=== PATIENT | female | born 1990 | race Caucasian/White ===

== ENCOUNTER 2016-12-03 09:20 | Inpatient (IN) | payer OTHER ==
--- NOTE | 2016-12-03 10:25 | PDOC ---
Attending Attestation - Resident Resident Name: Sotero Chaidez - ED Attending Attestation I have performed the following: I have examined & evaluated the patient, The case was reviewed & discussed with the resident, I agree w/resident's findings & plan, Exceptions are as noted - HPI HPI: 12/03/16 10:59 The patient is a 26-year-old, immunocompetent female, with a significant past medical history of previous MRSA colonization, who presents to the emergency department with several days of right sided facial swelling. She denies eye pain , pain with extraocular movement. She reports subjective fever and chills as well as paralyzed weakness and fatigue. - Physicial Exam PE: 12/03/16 10:59 She is well-appearing and in no acute distress She has 1 SIRS criteria, heart rate greater than 90 Will obtain labs Will administer IV clindamycin to cover community-acquired sandy including community acquired MRSA Will obtain CT of the facial bones with IV contrast to rule out abscess - Medical Decision Making 12/03/16 12:[address] pending
--- NOTE | 2016-12-03 10:26 | PDOC ---
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 No insect bites/ abrasions. Patient states that for the last 2 days, she has notes increased swelling over her right cheek with associated right nasal epistaxis and pus drainage. She also reports associated symptoms of subjective fevers and chills. She states that her right cheek is painful, for which she describes it as a pressure sensation with a rated 8-9/10 in severity. Her pain is exacerbated when chewing and opening her mouth. She took Ibuprofen this morning for her pain and fevers, for which she reports some relief. She denies associated symptoms of facial droop, slurred speech, difficulty swallowing, throat pain, neck pain, weakness and paresthesias sensations to the affected region and to her extremities. She reports that initially she believes she had a canker sore, but now states that her symptoms are similar to when she gets MRSA (Last MRSA was 2016; wound and blood; lives at [facility]; believes she gets her MRSA from there). She also reports noting a pruritic rash over her left foot. She also reports feeling short of breath but attributes her shortness of breath to her history of asthma and due to the hot weather. No chest pain, dizziness, palpitations, cough, nausea, vomiting, diarrhea. She does note that it is difficult for her to urinate, despite fluid intake and also reports a loss of appetite and generalized weakness and lightheadedness. She expresses concern for possible anemia, as she is craving ice chips and states that her menses are typically regular (lasting 5 days; but last month she states that her menses lasted approximately 12 days). No other complaints. Allergies: Lamictal. Topomax. Benadryl. Past Surgical History: See HPI. Social History: Current everyday cigarette smoker (approximately 1-2/day). No EtOH use. History of Opiod dependence, Primary Care Physician: N/A as of now, just switch her insurance. <Amanda Keen - Last Filed: 12/03/16 15:54> - General Chief Complaint: Edema Stated Complaint: SWOLLEN FACE Time Seen by Provider: 12/03/16 10:25 Past History - Past Medical History Anemia: No Asthma: Yes (Pt is on MDI) Cancer: No Cardiac Disorders: No CVA: No COPD: No CHF: No Dementia: No Diabetes: No GI Disorders: No Disorders: No HTN: No Hypercholesterolemia: No Kidney Stones: No Liver Disease: No Psychiatric Problems: Yes (anxiety) Suicide Attempt (Hx): No (denies) Seizures: No Thyroid Disease: No - Reproductive History PID: No - Immunization History Td Vaccination: Yes Immunization Up to Date: Yes - Psycho/Social/Smoking Cessation Hx Anxiety: Yes Suicidal Ideation: No Smoking Status: No Smoking History: Current every day smoker Have you smoked in the past 12 months: Yes Number of Cigarettes Smoked Daily: 1 Information on smoking cessation initiated: No 'Breaking Loose' booklet given: 11/13/15 Hx Alcohol Use: No Drug/Substance Use Hx: No Substance Use Type: Opiates, Prescribed Hx Substance Use Treatment: No <Sotero Chaidez - Last Filed: 12/03/16 12:09> <Arian Ricardo - Last Filed: 12/03/16 15:22> <Amanda Keen - Last Filed: 12/03/16 15:54> - Past Medical History Allergies/Adverse Reactions: Allergies Allergy/AdvReac Type Severity Reaction Status Date / Time buprenorphine HCl Allergy Verified 12/03/16 09:39 [From Suboxone] Fish Containing Products Allergy Verified 12/03/16 09:39 lamotrigine [From Lamictal] Allergy Verified 12/03/16 09:39 levonorgestrel-eth estra Allergy Verified 12/03/16 09:39 [From Seasonale] naloxone HCl [From Suboxone] Allergy Verified 12/03/16 09:39 topiramate [From Topamax] Allergy Verified 12/03/16 09:39 diphenhydramine HCl AdvReac Verified 12/03/16 09:39 [From Benadryl] liquid soap with perfume Allergy Uncoded 12/03/16 09:39 Home Medications: Ambulatory Orders Albuterol [Ventolin] 17 gm IH PRN PRN #1 aerosol 11/04/11 Amphet Asp/Amphet/D-Amphet [Adderall 30 mg Tablet] 90 mg PO DAILY 01/23/14 Alprazolam [Xanax -] 2 mg PO TID PRN 07/04/15 Cyclobenzaprine HCl [Flexeril -] 10 mg PO TID 11/13/15 Fluticasone Prop 0.05% Nasal [Flonase -] 2 spray NS DAILY 11/13/15 Zolpidem Tartrate [Ambien Cr] 10 mg PO HS 03/10/16 Quetiapine Fumarate [Seroquel] 100 mg PO HS 12/03/16 Venlafaxine HCl ER [Effexor Xr -] 150 mg PO DAILY 12/03/16 Review of Systems - Review of Systems Able to Perform ROS?: Yes Comments:: 12/03/16 10:47 CONSTITUTIONAL: Present: Fever. Chills. Loss of Appetite. Absent: diaphoresis, generalized weakness, malaise HEENT: Present: Epistaxis. Right nasal drainage/Pus. Throat Discomfort. Right cheek swelling. Absent: rhinorrhea, nasal congestion, throat swelling, difficulty swallowing, ear pain, eye pain, visual Changes CARDIOVASCULAR: Absent: chest pain, syncope, palpitations, irregular heart rate , lightheadedness, peripheral edema RESPIRATORY: Absent: cough, shortness of breath, dyspnea with exertion, orthopnea, wheezing, stridor, hemoptysis GASTROINTESTINAL:Absent: abdominal pain, abdominal distension, nausea, vomiting , diarrhea, constipation, melena, hematochezia GENITOURINARY: Absent: dysuria, frequency, urgency, hesitancy, hematuria, flank pain, genital pain MUSCULOSKELETAL: Absent: myalgia, arthralgia, joint swelling SKIN: Present: Left foot rash. Absent: itching, pallor HEMATOLOGIC/IMMUNOLOGIC: Absent: easy bleeding, easy bruising, lymphadenopathy, frequent infections ENDOCRINE:Absent: unexplained weight gain, unexplained weight loss, heat intolerance, cold intolerance NEUROLOGIC: Present: Lightheadedness. Absent: headache, focal weakness or paresthesias, unsteady gait, seizure, mental status changes, bladder or bowel incontinence PSYCHIATRIC: Present: history of anxiety/depression. Absent: suicidal or homicidal ideation, hallucinations <Amanda Keen - Last Filed: 12/03/16 15:54> *Physical Exam - Vital Signs Last Vital Signs Temp Pulse Resp BP Pulse Ox 98.4 F 95 H 18 152/91 100 12/03/16 09:39 12/03/16 09:39 12/03/16 09:39 12/03/16 09:39 12/03/16 09:39 <Sotero Chaidez - Last Filed: 12/03/16 12:09> - Vital Signs Last Vital Signs Temp Pulse Resp BP Pulse Ox 98.4 F 95 H 18 152/91 100 12/03/16 09:39 12/03/16 09:39 12/03/16 09:39 12/03/16 09:39 12/03/16 09:39 <Arian Ricardo - Last Filed: 12/03/16 15:22> - Vital Signs Last Vital Signs Temp Pulse Resp BP Pulse Ox 98.4 F 95 H 18 152/91 100 12/03/16 09:39 12/03/16 09:39 12/03/16 09:39 12/03/16 09:39 12/03/16 09:39 - Physical Exam Comments: 12/03/16 10:47 GENERAL: Awake. Alert and Oriented x3. No acute distress. Obese. HEENT: Normocephalic, atraumatic. PERRL, EOMI- no pain. No conjunctival pallor. Sclera are non-icteric. There is a noted pimple inside the opening of the right nare. No active bleeding. Right sided facial swelling with no induration, no open lesions, no abrasions with increased erythema when compared to the left nare. Right cheek is tender to palpation. No sinus pressure. Dry mucous membranes. Oropharynx is clear. NECK: Supple. Full ROM. No JVD. . No activ CARDIOVASCULAR: Regular rate and rhythm. No murmurs, rubs, or gallops. PULMONARY: No evidence of respiratory distress. Lungs clear to auscultation bilaterally. No wheezing, rales or rhonchi. ABDOMINAL: Soft. Non-tender. Non-distended. No rebound or guarding. No organomegaly. Normoactive bowel sounds. MUSCULOSKELETAL: Normal range of motion at all joints. No bony deformities or tenderness. No CVA tenderness. EXTREMITIES: No cyanosis. No clubbing. No edema. No calf tenderness. SKIN: Warm and dry. Normal capillary refill. No rashes. No jaundice. NEUROLOGICAL: Alert, awake, appropriate. Cranial nerves 2-12 intact. No deficits to light touch and temperature in face, upper extremities and lower extremities. No motor deficits in the in face, upper extremities and lower extremities. Normoreflexic in the upper and lower extremities. Normal speech. PSYCHIATRIC: Cooperative. Good eye contact. Appropriate mood and affect. <Amanda Keen - Last Filed: 12/03/16 15:54> ED Treatment Course - LABORATORY CBC & Chemistry Diagram: 12/03/16 10:53 12/03/16 10:53 <Sotero Chaidez - Last Filed: 12/03/16 12:09> - LABORATORY CBC & Chemistry Diagram: 12/03/16 10:53 12/03/16 10:53 - ADDITIONAL ORDERS Additional order review: Laboratory Results 12/03/16 12/03/16 12/03/16 10:53 10:53 10:53 Sodium 144 Potassium 4.2 Chloride 106 Carbon Dioxide 29 Anion Gap 9 BUN 14 D Creatinine 0.8 Creat Clearance w eGFR > 60 Random Glucose 92 Lactic Acid 0.733 Calcium 9.1 Total Bilirubin 0.4 AST 19 ALT 26 D Alkaline Phosphatase 83 Total Protein 6.7 Albumin 3.4 Urine Color Yellow Urine Appearance Clear Urine pH 6.0 Urine Protein Negative Urine Glucose (UA) Negative Urine Ketones Negative Urine Blood Negative Urine Nitrite Negative Urine Bilirubin Negative Urine Urobilinogen Negative Ur Leukocyte Esterase Negative Urine HCG, Qual Negative 12/03/16 10:53 RBC 4.39 MCV 78.4 L MCHC 31.7 L RDW 16.9 H D MPV 8.1 Neutrophils % 82.8 D Lymphocytes % 10.7 D Monocytes % 6.1 Eosinophils % 0.1 D Basophils % 0.3 - Medications Given in the ED: ED Medications Discontinued Medications Generic Name Dose Route Start Last Admin Trade Name Freq PRN Reason Stop Dose Admin Acetaminophen 1,000 mg 12/03/16 12:47 12/03/16 13:04 Ofirmev Injection - IVPB 12/03/16 12:48 1,000 mg ONCE ONE Administration Sodium Chloride 1,000 mls @ 1,000 mls/hr 12/03/16 10:52 12/03/16 11:28 Normal Saline - IV 12/03/16 11:51 1,000 mls/hr ASDIR STA Administration Clindamycin Phosphate 50 mls @ 100 mls/hr 12/03/16 10:59 12/03/16 11:28 Cleocin 900 Mg Premix Ivpb - IVPB 12/03/16 11:28 100 mls/hr ONCE ONE Administration <Arian Ricardo - Last Filed: 12/03/16 15:22> - LABORATORY CBC & Chemistry Diagram: 12/03/16 10:53 12/03/16 10:53 <Amanda Keen - Last Filed: 12/03/16 15:54> Medical Decision Making - Medical Decision Making 12/03/16 11:08 CBC, CMP, BCx, Lactic acid ordered UA, urine HCG ordered if urine hcg negative and creatinine wnl will also get facial bones CT w/ contrast 12/03/16 12:10 No elevated WBC, Cr 0.8, no electrolyte abnormalities Awaiting urine hcg before ct w/contrast <Sotero Chaidez - Last Filed: 12/03/16 12:09> - Medical Decision Making 12/03/16 15:22 Labs noted Case discussed with radiology She has facial cellulitis There is a small abscess at the base of the nose Clinical impression: Facial cellulitis Small facial abscess Will admit for IV antibiotics <Arian Ricardo - Last Filed: 12/03/16 15:22> - Medical Decision Making 12/03/16 15:[address] Rosibel Majano. 12/03/16 15:[address] Rosibel Majano. <Amanda Keen - Last Filed: 12/03/16 15:54> *DC/Admit/Observation/Transfer <Sotero Chaidez - Last Filed: 12/03/16 12:09> - Discharge Dispostion Admit: Yes <Arian Ricardo - Last Filed: 12/03/16 15:22> - Attestations Scribe Attestion: 12/03/16 10:47 Documentation prepared by Amanda Keen, acting as chief medical physicist for Arian Ricardo MD. <Amanda Keen - Last Filed: 12/03/16 15:54> Diagnosis at time of Disposition: Cellulitis, Abscess - Referrals Referrals: Justin Perez MD [Primary Care Provider] -
[2016-12-03] MEDS ORDERED: SODIUM CHLORIDE 1,000 ML IV STA (10:52)
[2016-12-03] MEDS ORDERED: CLINDAMYCIN 900 MG PREMIX IVPB 50 ML IVPB ONE ×2 (10:59→11:07)
[2016-12-03 11:18] LABS: BASOPHIL 0.3 % (0-2.0); EOSINOPHIL 0.1 % (0-4.5); MCH 24.9 pg (25.7-33.7); MCHC 31.7 g/dl (32.0-36.0); MEAN CELL VOLUME 78.4 fl (80-96); MEAN PLT VOLUME 8.1 fl (7.5-11.1); NEUTROPHILS 82.8 % (42.8-82.8); PLATELET COUNT 255 K/MM3 (134-434); RDW 16.9 % (11.6-15.6); WHITE BLOOD COUNT 8.5 K/mm3 (4.0-10.0)
[2016-12-03 11:45] LABS: ALBUMIN 3.4 g/dl (3.4-5.0); ANION GAP 9 (8-16); BILIRUBIN,TOTAL 0.4 mg/dL (0.2-1.0); CALCIUM 9.1 mg/dL (8.5-10.1); CO2 29 mmol/L (21-32); COCKROFT - GAULT 119.9435; CREATININE 0.8 mg/dL (0.55-1.02); GLUCOSE,RANDOM 92 mg/dL (74-106); SGOT/AST 19 U/L (15-37); SGPT/ALT 26 U/L (12-78); TOT PROT 6.7 g/dl (6.4-8.2)
[2016-12-03 11:46] LABS: ALK PHOS 83 U/L (45-117)
[2016-12-03 12:31] LABS: URINE APPEARANCE CLEAR; URINE BILIRUBIN NEGATIVE (NEGATIVE); URINE BLOOD NEGATIVE (NEGATIVE); URINE COLOR YELLOW; URINE GLUCOSE (UA) NEGATIVE (NEGATIVE); URINE KETONE NEGATIVE (NEGATIVE); URINE LEUK ESTERASE NEGATIVE (NEGATIVE); URINE NITRITE NEGATIVE (NEGATIVE); URINE PROTEIN NEGATIVE (NEGATIVE); URINE UROBILINOGEN NEGATIVE E.U./dl (0.2-1.0)
[2016-12-03] MEDS ORDERED: ACETAMINOPHEN 1000 MG/100 ML VIAL (NON FORMULARY) IVPB ONE (12:47)
[2016-12-03] MEDS ORDERED: ACETAMINOPHEN INJECTION 100 ML IVPB ONE (12:48)
[2016-12-03] MEDS ORDERED: morphine CARPU-JECT 4 MG/1 ML DISP.SYRIN IVPUSH ONE (16:01)
[2016-12-03] MEDS ORDERED: morphine CARPU-JECT 4 MG/1 ML DISP.SYRIN ONE (16:02)
[2016-12-03 19:29] VITALS: BMI 33.2
[2016-12-03] MEDS ORDERED: CLINDAMYCIN IVPB 300 MG in DEXTROSE 5%-WATER - 48 ML IVPB SCH (21:00)
[2016-12-03] MEDS ORDERED: VANCOMYCIN 1 GRAM (PRE-DOCKED) 1,000 MG/250 ML BAG IVPB SCH (21:00)
[2016-12-03] MEDS ORDERED: VANCOMYCIN 1 GRAM (PRE-DOCKED) 1,000 MG/250 ML BAG IVPB ONE (21:30)
[2016-12-03] MEDS ORDERED: ALBUTEROL SO4 6.7 GM HFA INHALER IH PRN (21:31)
[2016-12-03] MEDS ORDERED: PT OWN MED DRAWER 7, Y5N ONE (21:59)
[2016-12-03] MEDS: HEPARIN NA (PORCINE) 5,000 UNITS/ML 1ML VIAL SQ SCH (22:20)
[2016-12-03] MEDS: ALPRAZolam 2 MG TABLET PO PRN (22:23)
[2016-12-03] MEDS: QUEtiapine FUMARATE 100 MG TABLET (FP) PO SCH (22:23)
[2016-12-03] MEDS: CLINDAMYCIN 300 MG PREMIX IVPB 50 ML IVPB SCH (22:23)
--- NOTE | 2016-12-04 01:38 | HP ---
Admitting History and Physical - Past Medical History ...LMP: 11/13/16 ...: No - Smoking History Smoking history: Current every day smoker Have you smoked in the past 12 months: Yes Aproximately how many cigarettes per day: 10 - Alcohol/Substance Use Hx Alcohol Use: No Home Medications - Allergies Allergies/Adverse Reactions: Allergies Allergy/AdvReac Type Severity Reaction Status Date / Time buprenorphine HCl Allergy Verified 12/03/16 09:39 [From Suboxone] Fish Containing Products Allergy Verified 12/03/16 09:39 lamotrigine [From Lamictal] Allergy Verified 12/03/16 09:39 levonorgestrel-eth estra Allergy Verified 12/03/16 09:39 [From Seasonale] naloxone HCl [From Suboxone] Allergy Verified 12/03/16 09:39 topiramate [From Topamax] Allergy Verified 12/03/16 09:39 diphenhydramine HCl AdvReac Verified 12/03/16 09:39 [From Benadryl] liquid soap with perfume Allergy Uncoded 12/03/16 09:39 - Home Medications Home Medications: Ambulatory Orders Albuterol [Ventolin] 17 gm IH PRN PRN #1 aerosol 11/04/11 Amphet Asp/Amphet/D-Amphet [Adderall 30 mg Tablet] 90 mg PO DAILY 01/23/14 Alprazolam [Xanax -] 2 mg PO TID PRN 07/04/15 Cyclobenzaprine HCl [Flexeril -] 10 mg PO TID 11/13/15 Fluticasone Prop 0.05% Nasal [Flonase -] 2 spray NS DAILY 11/13/15 Zolpidem Tartrate [Ambien Cr] 10 mg PO HS 03/10/16 Quetiapine Fumarate [Seroquel] 100 mg PO HS 12/03/16 Venlafaxine HCl ER [Effexor Xr -] 150 mg PO DAILY 12/03/16 Physical Examination Vital Signs: Vital Signs Temperature 97.8 F 12/03/16 19:18 Pulse Rate 73 12/03/16 19:18 Respiratory Rate 20 12/03/16 19:18 Blood Pressure 124/74 12/03/16 19:18 O2 Sat by Pulse Oximetry (%) 99 12/03/16 19:18
[2016-12-04] MEDS: CLINDAMYCIN 300 MG PREMIX IVPB 50 ML IVPB SCH (02:13)
[2016-12-04 08:25] LABS: BASOPHIL 0.3 % (0-2.0); EOSINOPHIL 1.4 % (0-4.5); MCH 24.9 pg (25.7-33.7); MCHC 31.7 g/dl (32.0-36.0); MEAN CELL VOLUME 78.4 fl (80-96); MEAN PLT VOLUME 7.9 fl (7.5-11.1); NEUTROPHILS 49.7 % (42.8-82.8); PLATELET COUNT 229 K/MM3 (134-434); RDW 16.8 % (11.6-15.6); WHITE BLOOD COUNT 7.1 K/mm3 (4.0-10.0)
[2016-12-04] MEDS: KETOROLAC TROMETHAMINE 30 MG/1 ML VIAL IVPB PRN ×3 (08:39→20:58)
[2016-12-04] MEDS: ALPRAZolam 2 MG TABLET PO PRN ×2 (08:41→16:41)
--- NOTE | 2016-12-04 08:56 | PN ---
Progress Note, Physician Chief Complaint: ID Full note dictated history of MRSA recurrent - Current Medication List Current Medications: Active Medications Albuterol Sulfate (Ventolin Hfa Inhaler -) 2 puff IH Q4H PRN PRN Reason: SHORT OF BREATH/WHEEZING Alprazolam (Xanax -) 1 mg PO TID PRN PRN Reason: ANXIETY Last Admin: 12/04/16 08:41 Dose: 1 mg Cyclobenzaprine HCl (Flexeril -) 10 mg PO TID PRN PRN Reason: spasm Heparin Sodium (Porcine) (Heparin -) 5,000 unit SQ BID [facility] Last Admin: 12/03/16 22:20 Dose: 5,000 unit Clindamycin Phosphate (Cleocin 300 Mg Premix Ivpb) 50 mls @ 100 mls/hr IVPB Q6H -IV [facility] Last Admin: 12/04/16 02:13 Dose: 100 mls/hr Ketorolac Tromethamine (Toradol Injection -) 30 mg IVPB Q6H PRN Stop: 12/08/16 22:04 Last Admin: 12/04/16 08:39 Dose: 30 mg Quetiapine Fumarate (Seroquel -) 100 mg PO HS [facility] Last Admin: 12/03/16 22:23 Dose: Not Given Vancomycin HCl (Vancomycin (Pre-Docked)) 1,000 mg IVPB DAILY [facility] PRN Reason: Protocol Venlafaxine HCl (Effexor Xr -) 150 mg PO DAILY [facility] - Objective Vital Signs: Vital Signs Temperature 98.1 F 12/04/16 08:35 Pulse Rate 82 12/04/16 08:35 Respiratory Rate 18 12/04/16 08:35 Blood Pressure 141/60 12/04/16 08:35 O2 Sat by Pulse Oximetry (%) 99 12/03/16 21:00 HENT: Yes: Other (Right facial cheek induration and tenderness extending to the right nare looks inflammed) Labs: CBC, BMP 12/04/16 07:40 Problem List - Problems (1) Facial abscess Code(s): L02.01 - CUTANEOUS ABSCESS OF FACE (2) Cellulitis Code(s): L03.90 - CELLULITIS, UNSPECIFIED Assessment/Plan Microbiology Laboratory Tests 12/04/16 07:40 WBC 7.1 Hgb 10.8 Plt Count 229 Assessment MRSA skin infection Plan Nares culture Vanco 1.25mg bid Private room isolate Warm compresses face Consider ENT evaluation Parth CARRIZALES
[2016-12-04 09:00] LABS: ALBUMIN 2.7 g/dl (3.4-5.0); ALK PHOS 68 U/L (45-117); ANION GAP 12 (8-16); BILIRUBIN,TOTAL 0.2 mg/dL (0.2-1.0); CALCIUM 8.2 mg/dL (8.5-10.1); CO2 29 mmol/L (21-32); COCKROFT - GAULT 145.6475; CREATININE 0.7 mg/dL (0.55-1.02); GLUCOSE,RANDOM 89 mg/dL (74-106); SGOT/AST 12 U/L (15-37); SGPT/ALT 19 U/L (12-78); TOT PROT 5.5 g/dl (6.4-8.2)
[2016-12-04] MEDS ORDERED: PT OWN MED DRAWER 7, Y5N ONE ×2 (09:40→21:41)
[2016-12-04] MEDS: VENLAFAXINE HCL 75 MG E.R. CAPSULES (FP) PO SCH (09:42)
[2016-12-04] MEDS: HEPARIN NA (PORCINE) 5,000 UNITS/ML 1ML VIAL SQ SCH ×2 (09:42→21:42)
[2016-12-04] MEDS: VANCOMYCIN 1,250 MG in DEXTROSE 5%-WATER - 250 ML IVPB SCH ×2 (10:49→21:42)
--- NOTE | 2016-12-04 13:39 | CONS ---
DATE OF CONSULTATION: DATE OF DICTATION: 12/04/2016 HISTORY OF PRESENT ILLNESS: This is a 26-year-old female who presents with 2-3 history of right facial pain and swelling involving the outer naris on the right side of her face. She notes a history of recurrent MRSA infections including at least one prolonged admission where she may have been bacteremic years ago at [facility], as she notes staying there for 30 days. More recently, she has had intermittent skin abscesses including recently. Several days ago, she noted an irritation in the right side of her nose and began to irritate it noting purulent discharge. Over the last 2 days, the right cheek and outer aspect of her right nose became increasingly painful and swollen. She subjectively reports fever and chills. She denies any headache, visual complaints, chest pain, abdominal pain, or urinary complaints. PAST MEDICAL HISTORY: Includes asthma, anxiety disorder, bipolar, and polysubstance abuse, noting that she has been on Suboxone for opioid dependency. She has not been using intravenous drugs. She denies any history of heart murmur. She lives in a intermediate at the . She was empirically given clindamycin and a dose of vancomycin. ALLERGIES: To TOPAMAX and BENADRYL. SOCIAL HISTORY: An every-day smoker, no alcohol use, lives at a intermediate, history of opioid dependence, HIV status negative several days ago. FAMILY HISTORY: Noncontributory. REVIEW OF SYSTEMS: All systems reviewed and noncontributory, negative. PHYSICAL EXAMINATION: General: Shows an alert female in no acute distress. Vital signs: Without fever, with a temperature of 98.1, pulse 82, blood pressure 140/60, respirations 18. HEENT: Revealed facial swelling involving the right cheek adjacent to and at her aspect of the right naris. All areas were tender to touch with some faint erythema noted. Some dry discharge in the right nostril was noted. No crepitus was appreciated. LABORATORY DATA: The white count was 7.1 with a hemoglobin 10.8 and platelets of 229. Glucose was 89, BUN 11, creatinine 0.7. Urinalysis and test negative. Two sets of blood cultures obtained on admission, thus far, no growth. Facial bone CT scan shows inflammation, soft tissue induration anterior to the medial aspect of the right maxilla and base of the right nostril with enhancing soft tissue 12-mm central lucency, possible early abscess. ASSESSMENT: This 26-year-old female presents with right facial pain and swelling with early abscess noted on CT imaging. She is not toxic appearing, nor febrile, and has a normal white count. .Almost certainly, we are dealing with a recurrent methicillin-resistant staphylococcus aureus facial cellulitis with early abscess. Will discontinue clindamycin, put her on vancomycin 1.25 g every 12 hours, obtain a CRP, isolate her, and do naris screening. Consideration of ENT consult to assess for possible need for drainage. SRINIVASAN PARR M.D. [id number]
--- NOTE | 2016-12-04 19:57 | PN ---
Progress Note (short form) - Note Progress Note: ENT asked to see pt re facial and nasal infection hx reviewed pt examined prior hx MRSA admitted yesterday,batres right facial pain and swelling, nasal discomfort some drainage noted from right nostril teeth were hurting, lips were more swollen yesterday improving with IV antibiotics and lo9cal heat. PE NAD eyes clear nose external sl swelling right ala, drainage right inferior vestibule remaining nasal passage WNL mouth, throat clear right face mild swelling and mild erythema neck no mass or nodes WBC elevated +MRSA Impression right nasal and facial cellulitis, some spontaneous right nasal drainage improving with IV antibiotics Recommend: continue present management as per ID elevate head of bed, local heat Thank you for consultation, Arian Crow MD FACS
[2016-12-04] MEDS: QUEtiapine FUMARATE 100 MG TABLET (FP) PO SCH (21:40)
[2016-12-05] MEDS: ALPRAZolam 2 MG TABLET PO PRN ×3 (00:39→17:56)
[2016-12-05] MEDS: KETOROLAC TROMETHAMINE 30 MG/1 ML VIAL IVPB PRN ×3 (04:33→17:53)
[2016-12-05] MEDS: HEPARIN NA (PORCINE) 5,000 UNITS/ML 1ML VIAL SQ SCH ×2 (10:31→21:43)
[2016-12-05] MEDS: VENLAFAXINE HCL 75 MG E.R. CAPSULES (FP) PO SCH (10:31)
[2016-12-05] MEDS: VANCOMYCIN 1,250 MG in DEXTROSE 5%-WATER - 250 ML IVPB SCH ×2 (10:32→21:39)
--- NOTE | 2016-12-05 12:22 | PN ---
Progress Note (short form) - Note Progress Note: reports some improvement but still with facial pain Vital Signs Period Temp Pulse Resp BP Sys/Brower Pulse Ox Last 24 Hr 98.1 F-98.8 F 79-86 18-18 124-149/76-98 97 cor-rrr lungs clear abd soft,nt ext no edema face - still some induration right cheek and right ala CBC, BMP 12/04/16 07:40 12/04/16 07:40 Microbiology 12/03/16 10:53 Blood - Peripheral Venous Blood Culture - Preliminary NO GROWTH OBTAINED AFTER 48 HOURS, INCUBATION TO CONTINUE FOR 3 DAYS. 12/03/16 10:53 Blood - Peripheral Venous Blood Culture - Preliminary NO GROWTH OBTAINED AFTER 48 HOURS, INCUBATION TO CONTINUE FOR 3 DAYS. a/p facial cellulitis/soft tissue infection continue vancomycin check trough in am
--- NOTE | 2016-12-05 18:33 | PN ---
Progress Note, Physician - Current Medication List Current Medications: Active Medications Albuterol Sulfate (Ventolin Hfa Inhaler -) 2 puff IH Q4H PRN PRN Reason: SHORT OF BREATH/WHEEZING Alprazolam (Xanax -) 2 mg PO TID PRN PRN Reason: ANXIETY Last Admin: 12/05/16 17:56 Dose: 2 mg Cyclobenzaprine HCl (Flexeril -) 10 mg PO TID PRN PRN Reason: spasm Heparin Sodium (Porcine) (Heparin -) 5,000 unit SQ BID [facility] Last Admin: 12/05/16 10:31 Dose: 5,000 unit Vancomycin HCl 1,250 mg/ (Dextrose) 250 mls @ 166.667 mls/hr IVPB BID [facility] PRN Reason: Protocol Last Admin: 12/05/16 10:32 Dose: 166.667 mls/hr Ketorolac Tromethamine (Toradol Injection -) 30 mg IVPB Q6H PRN Stop: 12/08/16 22:04 Last Admin: 12/05/16 17:53 Dose: 30 mg Quetiapine Fumarate (Seroquel -) 100 mg PO HS [facility] Last Admin: 12/04/16 21:40 Dose: Not Given Venlafaxine HCl (Effexor Xr -) 150 mg PO DAILY [facility] Last Admin: 12/05/16 10:31 Dose: 150 mg - Objective Vital Signs: Vital Signs Temperature 97.6 F 12/05/16 13:50 Pulse Rate 73 12/05/16 13:50 Respiratory Rate 20 12/05/16 13:50 Blood Pressure 142/84 12/05/16 13:50 O2 Sat by Pulse Oximetry (%) 97 12/05/16 09:00 Labs: CBC, BMP 12/04/16 07:40 12/04/16 07:40
[2016-12-05] MEDS: PANTOPRAZOLE 40 MG TABLET (FP) PO SCH (21:43)
[2016-12-05] MEDS: MONTELUKAST NA 10 MG TABLET PO SCH (21:43)
[2016-12-05] MEDS: QUEtiapine FUMARATE 100 MG TABLET (FP) PO SCH (21:43)
[2016-12-06] MEDS: KETOROLAC TROMETHAMINE 30 MG/1 ML VIAL IVPB PRN ×3 (00:24→17:52)
[2016-12-06] MEDS: ZOLPIDEM TARTRATE 5 MG TABLET PO PRN ×2 (00:25→22:01)
[2016-12-06] MEDS ORDERED: PT OWN MED DRAWER 7, Y5N ONE (09:34)
[2016-12-06] MEDS: PANTOPRAZOLE 40 MG TABLET (FP) PO SCH (09:44)
[2016-12-06] MEDS: VENLAFAXINE HCL 75 MG E.R. CAPSULES (FP) PO SCH (09:44)
[2016-12-06] MEDS: HEPARIN NA (PORCINE) 5,000 UNITS/ML 1ML VIAL SQ SCH ×2 (09:44→22:01)
[2016-12-06] MEDS: ALPRAZolam 2 MG TABLET PO PRN ×2 (09:46→17:54)
[2016-12-06] MEDS: VANCOMYCIN 1,250 MG in DEXTROSE 5%-WATER - 250 ML IVPB SCH ×2 (09:58→21:54)
--- NOTE | 2016-12-06 13:42 | PN ---
Progress Note (short form) - Note Progress Note: reports some improvement but still with facial pain no fevers Vital Signs Period Temp Pulse Resp BP Sys/Brower Pulse Ox Last 24 Hr 97.6 F-98.6 F 60-80 18-20 106-142/51-84 97-100 cor-rrr lungs clear abd soft,nt ext no edema face- less erythema/less induration CBC, BMP 12/04/16 07:40 12/04/16 07:40 Laboratory Tests 12/06/16 09:00 Vancomycin Trough 15.474 H* Microbiology 12/03/16 10:53 Blood - Peripheral Venous Blood Culture - Preliminary NO GROWTH OBTAINED AFTER 72 HOURS, INCUBATION TO CONTINUE FOR 2 DAYS. 12/03/16 10:53 Blood - Peripheral Venous Blood Culture - Preliminary NO GROWTH OBTAINED AFTER 72 HOURS, INCUBATION TO CONTINUE FOR 2 DAYS. 12/04/16 09:55 Nares - Mrsa Screen - Right MRSA Screen - Final S Aureus 12/04/16 09:55 Nares - Mrsa Screen - Left MRSA Screen - Final S Aureus a/p facial cellulitis/soft tissue infection continue vancomycin, trough acceptable at 15 check cbc, bmp today if labs are normal, consider switch to po bactrim-nares with MRSA resistant to clinda, sensitive to bactrim
[2016-12-06] MEDS: CYCLOBENZAPRINE HCL 10 MG TABLET (FP) PO PRN ×2 (14:23→22:01)
[2016-12-06 14:45] LABS: MCH 24.5 pg (25.7-33.7); MCHC 31.5 g/dl (32.0-36.0); MEAN CELL VOLUME 77.9 fl (80-96); MEAN PLT VOLUME 7.7 fl (7.5-11.1); PLATELET COUNT 308 K/MM3 (134-434); WHITE BLOOD COUNT 15.9 K/mm3 (4.0-10.0)
[2016-12-06 14:50] LABS: CALCIUM 8.6 mg/dL (8.5-10.1); COCKROFT - GAULT 101.9575
[2016-12-06] MEDS: MONTELUKAST NA 10 MG TABLET PO SCH (22:01)
[2016-12-06] MEDS: QUEtiapine FUMARATE 100 MG TABLET (FP) PO SCH (22:02)
--- NOTE | 2016-12-06 23:22 | PN ---
Progress Note, Physician - Current Medication List Current Medications: Active Medications Albuterol Sulfate (Ventolin Hfa Inhaler -) 2 puff IH Q4H PRN PRN Reason: SHORT OF BREATH/WHEEZING Alprazolam (Xanax -) 2 mg PO TID PRN PRN Reason: ANXIETY Last Admin: 12/06/16 17:54 Dose: 2 mg Cyclobenzaprine HCl (Flexeril -) 10 mg PO TID PRN PRN Reason: spasm Last Admin: 12/06/16 22:01 Dose: 10 mg Heparin Sodium (Porcine) (Heparin -) 5,000 unit SQ BID [facility] Last Admin: 12/06/16 22:01 Dose: 5,000 unit Vancomycin HCl 1,250 mg/ (Dextrose) 250 mls @ 166.667 mls/hr IVPB BID [facility] PRN Reason: Protocol Last Admin: 12/06/16 21:54 Dose: 166.667 mls/hr Ketorolac Tromethamine (Toradol Injection -) 30 mg IVPB Q6H PRN Stop: 12/08/16 22:04 Last Admin: 12/06/16 17:52 Dose: 30 mg Montelukast Sodium (Singulair -) 10 mg PO HS [facility] Last Admin: 12/06/16 22:01 Dose: 10 mg Pantoprazole Sodium (Protonix -) 40 mg PO DAILY [facility] Last Admin: 12/06/16 09:44 Dose: 40 mg Quetiapine Fumarate (Seroquel -) 100 mg PO HS [facility] Last Admin: 12/06/16 22:02 Dose: Not Given Venlafaxine HCl (Effexor Xr -) 150 mg PO DAILY [facility] Last Admin: 12/06/16 09:44 Dose: 150 mg Zolpidem Tartrate (Ambien -) 10 mg PO HS PRN PRN Reason: INSOMNIA Last Admin: 12/06/16 22:01 Dose: 10 mg - Objective Vital Signs: Vital Signs Temperature 97.3 F L 12/06/16 17:38 Pulse Rate 60 12/06/16 17:38 Respiratory Rate 20 12/06/16 17:38 Blood Pressure 90/56 12/06/16 17:38 O2 Sat by Pulse Oximetry (%) 100 12/06/16 09:00 Labs: CBC, BMP 12/06/16 14:15 12/06/16 14:15
[2016-12-07 07:30] LABS: BASOPHIL 0.4 % (0-2.0); EOSINOPHIL 1.4 % (0-4.5); MCH 25.1 pg (25.7-33.7); MCHC 31.7 g/dl (32.0-36.0); MEAN CELL VOLUME 79.1 fl (80-96); MEAN PLT VOLUME 7.6 fl (7.5-11.1); NEUTROPHILS 60.9 % (42.8-82.8); PLATELET COUNT 289 K/MM3 (134-434); RDW 16.8 % (11.6-15.6); WHITE BLOOD COUNT 10.9 K/mm3 (4.0-10.0)
[2016-12-07 08:29] LABS: ALBUMIN 3.1 g/dl (3.4-5.0); ALK PHOS 71 U/L (45-117); ANION GAP 7 (8-16); BILIRUBIN,TOTAL 0.3 mg/dL (0.2-1.0); CALCIUM 8.6 mg/dL (8.5-10.1); CO2 32 mmol/L (21-32); COCKROFT - GAULT 113.2795; CREATININE 0.9 mg/dL (0.55-1.02); GLUCOSE,RANDOM 67 mg/dL (74-106); SGOT/AST 25 U/L (15-37); SGPT/ALT 24 U/L (12-78); TOT PROT 6.3 g/dl (6.4-8.2)
[2016-12-07] MEDS ORDERED: PT OWN MED DRAWER 7, Y5N ONE (09:01)
[2016-12-07] MEDS: VENLAFAXINE HCL 75 MG E.R. CAPSULES (FP) PO SCH (09:14)
[2016-12-07] MEDS: KETOROLAC TROMETHAMINE 30 MG/1 ML VIAL IVPB PRN ×2 (09:14→21:23)
[2016-12-07] MEDS: PANTOPRAZOLE 40 MG TABLET (FP) PO SCH (09:14)
[2016-12-07] MEDS: ALPRAZolam 2 MG TABLET PO PRN ×2 (09:14→17:57)
[2016-12-07] MEDS: HEPARIN NA (PORCINE) 5,000 UNITS/ML 1ML VIAL SQ SCH ×2 (09:14→21:23)
[2016-12-07] MEDS: VANCOMYCIN 1 GRAM (PRE-DOCKED) 1,000 MG/250 ML BAG IVPB SCH ×2 (09:15→21:24)
[2016-12-07] MEDS: CYCLOBENZAPRINE HCL 10 MG TABLET (FP) PO PRN (17:57)
--- NOTE | 2016-12-07 18:19 | PN ---
Progress Note (short form) - Note Progress Note: ENT pt reports significant improvement in right nose and face "70% better" still some tightness and retroorbital pressure sense of smell improving Now complains of an abscess developing in left axilla PE NAD eyes EOMI, conjunctivae clear face no swelling nose no drainage, airway WNL Impression: right nasal and facial infection improved left axillary infection - new per pt pt has known hx of nasal allergy and sinus problems (outpt mgmt with Dr. Bolden) Recommend: continue antibiotics as per Infectious Diseases nasal saline spray Arian Crow MD
--- NOTE | 2016-12-07 20:33 | PN ---
Progress Note, Physician History of Present Illness: No new complaints - Current Medication List Current Medications: Active Medications Albuterol Sulfate (Ventolin Hfa Inhaler -) 2 puff IH Q4H PRN PRN Reason: SHORT OF BREATH/WHEEZING Alprazolam (Xanax -) 2 mg PO TID PRN PRN Reason: ANXIETY Last Admin: 12/07/16 17:57 Dose: 2 mg Cyclobenzaprine HCl (Flexeril -) 10 mg PO TID PRN PRN Reason: spasm Last Admin: 12/07/16 17:57 Dose: 10 mg Heparin Sodium (Porcine) (Heparin -) 5,000 unit SQ BID [facility] Last Admin: 12/07/16 09:14 Dose: 5,000 unit Ketorolac Tromethamine (Toradol Injection -) 30 mg IVPB Q6H PRN Stop: 12/08/16 22:04 Last Admin: 12/07/16 09:14 Dose: 30 mg Montelukast Sodium (Singulair -) 10 mg PO HS [facility] Last Admin: 12/06/16 22:01 Dose: 10 mg Pantoprazole Sodium (Protonix -) 40 mg PO DAILY [facility] Last Admin: 12/07/16 09:14 Dose: 40 mg Quetiapine Fumarate (Seroquel -) 100 mg PO HS [facility] Last Admin: 12/06/16 22:02 Dose: Not Given Sodium Chloride ([place] Nasal [place] -) 2 spray NS BID [facility] Vancomycin HCl (Vancomycin (Pre-Docked)) 1,000 mg IVPB BID [facility] PRN Reason: Protocol Last Admin: 12/07/16 09:15 Dose: 1,000 mg Venlafaxine HCl (Effexor Xr -) 150 mg PO DAILY [facility] Last Admin: 12/07/16 09:14 Dose: 150 mg Zolpidem Tartrate (Ambien -) 10 mg PO HS PRN PRN Reason: INSOMNIA Last Admin: 12/06/16 22:01 Dose: 10 mg - Objective Vital Signs: Vital Signs Temperature 98.0 F 12/07/16 14:12 Pulse Rate 74 12/07/16 14:12 Respiratory Rate 20 12/07/16 09:00 Blood Pressure 114/59 12/07/16 14:12 O2 Sat by Pulse Oximetry (%) 100 12/06/16 21:00 Constitutional: Yes: Well Nourished Eyes: Yes: WNL HENT: Yes: Other ((+) abrasion Rt nare) Neck: Yes: Supple Cardiovascular: Yes: WNL, Regular Rate and Rhythm Respiratory: Yes: WNL, Regular, CTA Bilaterally Gastrointestinal: Yes: WNL, Normal Bowel Sounds, Soft Labs: CBC, BMP 12/07/16 06:30 12/07/16 06:30 Problem List - Problems (1) Cellulitis Assessment/Plan: Cont IV antibxs Check wbc in am and if normal will change to po antibx and dc Code(s): L03.90 - CELLULITIS, UNSPECIFIED (2) Facial abscess Assessment/Plan: Cont IV antibx ENT consult noted Code(s): L02.01 - CUTANEOUS ABSCESS OF FACE (3) Acid reflux disease Code(s): K21.9 - GASTRO-ESOPHAGEAL REFLUX DISEASE WITHOUT ESOPHAGITIS Qualifiers: Esophagitis presence: without esophagitis Qualified Code(s): K21.9 - Gastro-esophageal reflux disease without esophagitis (4) Anemia Code(s): D64.9 - ANEMIA, UNSPECIFIED Qualifiers: Anemia type: unspecified type Qualified Code(s): D64.9 - Anemia, unspecified (5) Asthma Code(s): J45.909 - UNSPECIFIED ASTHMA, UNCOMPLICATED Qualifiers: Asthma severity: mild intermittent Asthma complication type: uncomplicated Qualified Code(s): J45.20 - Mild intermittent asthma, uncomplicated
[2016-12-07] MEDS: MONTELUKAST NA 10 MG TABLET PO SCH (21:22)
[2016-12-07] MEDS: QUEtiapine FUMARATE 100 MG TABLET (FP) PO SCH (21:24)
[2016-12-07] MEDS: SODIUM CHLORIDE NASAL SPRAY 44 ML BOTTLE NS SCH (21:24)
[2016-12-08] MEDS: ZOLPIDEM TARTRATE 5 MG TABLET PO PRN (00:09)
[2016-12-08 07:40] LABS: BASOPHIL 0.2 % (0-2.0); EOSINOPHIL 1.4 % (0-4.5); MCH 25.1 pg (25.7-33.7); MEAN CELL VOLUME 78.5 fl (80-96); MEAN PLT VOLUME 7.8 fl (7.5-11.1); NEUTROPHILS 60.5 % (42.8-82.8); PLATELET COUNT 282 K/MM3 (134-434); WHITE BLOOD COUNT 10.5 K/mm3 (4.0-10.0)
[2016-12-08 08:39] LABS: ALK PHOS 63 U/L (45-117); ANION GAP 8 (8-16); BILIRUBIN,TOTAL 0.4 mg/dL (0.2-1.0); CALCIUM 8.5 mg/dL (8.5-10.1); CO2 30 mmol/L (21-32); COCKROFT - GAULT 101.9575; GLUCOSE,RANDOM 60 mg/dL (74-106); SGOT/AST 26 U/L (15-37); SGPT/ALT 26 U/L (12-78); TOT PROT 5.9 g/dl (6.4-8.2)
[2016-12-08] MEDS: KETOROLAC TROMETHAMINE 30 MG/1 ML VIAL IVPB PRN (09:09)
[2016-12-08] MEDS: SODIUM CHLORIDE NASAL SPRAY 44 ML BOTTLE NS SCH (09:09)
[2016-12-08] MEDS: HEPARIN NA (PORCINE) 5,000 UNITS/ML 1ML VIAL SQ SCH (09:10)
[2016-12-08] MEDS: VANCOMYCIN 1 GRAM (PRE-DOCKED) 1,000 MG/250 ML BAG IVPB SCH (09:10)
[2016-12-08] MEDS: PANTOPRAZOLE 40 MG TABLET (FP) PO SCH (09:10)
[2016-12-08] MEDS: VENLAFAXINE HCL 75 MG E.R. CAPSULES (FP) PO SCH (09:26)
--- NOTE | 2016-12-08 12:22 | PN ---
Progress Note (short form) - Note Progress Note: doing well facial erythema resolved induration resolved Vital Signs Period Temp Pulse Resp BP Sys/Brower Pulse Ox Last 24 Hr 98.0 F-98.5 F 74-80 20-20 102-114/42-59 cor-rrr lungs clear abd soft,nt ext no edema no axillary abscess CBC, BMP 12/08/16 06:15 12/08/16 06:15 Microbiology 12/03/16 10:53 Blood - Peripheral Venous Blood Culture - Final NO GROWTH AFTER 5 DAYS INCUBATION 12/03/16 10:53 Blood - Peripheral Venous Blood Culture - Final NO GROWTH AFTER 5 DAYS INCUBATION 12/04/16 09:55 Nares - Mrsa Screen - Right MRSA Screen - Final Mr S Aureus 12/04/16 09:55 Nares - Mrsa Screen - Left MRSA Screen - Final Mr S Aureus a/p much improved MRSA cellulitis can switch to po bactrim 1 ds po bid for 7 days she gets frequent mrsa infections could try decolonization after she completes bactrim with 7 days of daily chlorhexidine washes and 7 days of mupirocin to nares bid please call back if needed
[2016-12-08 15:00] VITALS: BP 106/54; PULSE 98; TEMP 98.6
== END 2016-12-08 15:09 | disposition home or self-care (01) | DRG 383 ==
LOC: JER 09:20 → JERBED 15:24 → J6S 17:40
PROVIDERS: ADMIT Internal Medicine; ATTEND Internal Medicine
DX: L03.211 Cellulitis of face (principal); J45.909 Unspecified asthma, uncomplicated; F41.9 Anxiety disorder, unspecified; F90.1 Attention-deficit hyperactivity disorder, predominantly hyperactive type; F31.9 Bipolar disorder, unspecified; H40.9 Unspecified glaucoma; F11.10 Opioid abuse, uncomplicated; E66.9 Obesity, unspecified; F17.210 Nicotine dependence, cigarettes, uncomplicated; K21.9 Gastro-esophageal reflux disease without esophagitis; D64.9 Anemia, unspecified; B95.62 Methicillin resistant Staphylococcus aureus infection as the cause of diseases classified elsewhere; Z68.33 Body mass index [BMI] 33.0-33.9, adult
CPT/HCPCS: 36415; 70487-TC; 80048; 80053; 81003; 83605; 84703; 85025; 85027; 86141; 87040; 87081; 87186; 99284-25; G0480; J1644

== ENCOUNTER 2016-12-22 16:36 | Emergency (ER) | payer OTHER ==
[2016-12-22 17:03] VITALS: BP 141/78; PULSE 86; TEMP 98.3; BMI 35.2
--- NOTE | 2016-12-22 17:03 | PDOC ---
Rapid Medical Evaluation Time Seen by Provider: 12/22/16 16:59 Medical Evaluation: Allergies Allergy/AdvReac Type Severity Reaction Status Date / Time buprenorphine HCl Allergy Verified 12/03/16 09:39 [From Suboxone] Fish Containing Products Allergy Verified 12/03/16 09:39 lamotrigine [From Lamictal] Allergy Verified 12/03/16 09:39 levonorgestrel-eth estra Allergy Verified 12/03/16 09:39 [From Seasonale] naloxone HCl [From Suboxone] Allergy Verified 12/03/16 09:39 topiramate [From Topamax] Allergy Verified 12/03/16 09:39 diphenhydramine HCl AdvReac Verified 12/03/16 09:39 [From Benadryl] liquid soap with perfume Allergy Uncoded 12/03/16 09:39 I have performed a brief in-person evaluation of this patient. The patient presents with a chief complaint of: pain of maxillary sinuses, sinus headache, congestion and sore throat x 3 days. In the past the patient has needed IV abx for treatment of MRSA sinus infections. Prior infections have been treated with vancomycin. Fever this morning of 102.3 - took motrin. Pertinent physical exam findings: TTP of frontal and maxillary sinuses. I have ordered the following: UA/hcg The patient will proceed to the ED for further evaluation.
[2016-12-22 17:26] LABS: URINE APPEARANCE CLEAR; URINE BILIRUBIN NEGATIVE (NEGATIVE); URINE BLOOD NEGATIVE (NEGATIVE); URINE COLOR YELLOW; URINE GLUCOSE (UA) NEGATIVE (NEGATIVE); URINE KETONE TRACE (NEGATIVE); URINE NITRITE NEGATIVE (NEGATIVE); URINE PROTEIN NEGATIVE (NEGATIVE); URINE UROBILINOGEN NEGATIVE E.U./dl (0.2-1.0)
[2016-12-22 17:52] LABS: URINE LEUK ESTERASE TRACE (NEGATIVE)
--- NOTE | 2016-12-22 18:28 | PDOC ---
History of Present Illness - General Chief Complaint: Pain Stated Complaint: EVALUATION Time Seen by Provider: 12/22/16 16:59 History Source: Patient Exam Limitations: No Limitations - History of Present Illness Initial Comments: 12/22/16 18:31 Him a with history of recurrent sinus infections secondary to MRSA presents to the ED with complaints of right nasal pressure including congestion despite being on Augmentin day 5 of 7 and using Flonase. Patient denies fever, chills, dizziness, sore throat but does state frontal headache which she describes a pressure. Patient states was admitted here last month secondary to facial cellulitis where she was placed on IV vancomycin and discharged home with Bactrim after seeing infectious disease and ENT specialist. Timing/Duration: changing over time Severity: mild Associated Symptoms: reports: headaches (frontal). denies: fever/chills Past History - Travel Traveled outside of the country in the last 30 days: No Close contact w/someone who was outside of country & ill: No - Past Medical History Allergies/Adverse Reactions: Allergies Allergy/AdvReac Type Severity Reaction Status Date / Time buprenorphine HCl Allergy Verified 12/22/16 17:03 [From Suboxone] Fish Containing Products Allergy Verified 12/22/16 17:03 lamotrigine [From Lamictal] Allergy Verified 12/22/16 17:03 levonorgestrel-eth estra Allergy Verified 12/22/16 17:03 [From Seasonale] naloxone HCl [From Suboxone] Allergy Verified 12/22/16 17:03 topiramate [From Topamax] Allergy Verified 12/22/16 17:03 diphenhydramine HCl AdvReac Verified 12/22/16 17:03 [From Benadryl] liquid soap with perfume Allergy Uncoded 12/22/16 17:03 Home Medications: Ambulatory Orders Albuterol [Ventolin] 17 gm IH PRN PRN #1 aerosol 11/04/11 Amphet Asp/Amphet/D-Amphet [Adderall 30 mg Tablet] 90 mg PO DAILY 01/23/14 Alprazolam [Xanax] 2 mg PO TID PRN 07/04/15 Cyclobenzaprine HCl [Flexeril -] 10 mg PO TID 11/13/15 Fluticasone Prop 0.05% Nasal [Flonase -] 2 spray NS DAILY 11/13/15 Zolpidem Tartrate [Ambien Cr] 10 mg PO HS 03/10/16 Quetiapine Fumarate [Seroquel] 100 mg PO HS 12/03/16 Venlafaxine HCl ER [Effexor Xr -] 150 mg PO DAILY 12/03/16 Montelukast Na [Singulair -] 10 mg PO HS tablet 12/08/16 Mupirocin Nasal Ointment [Bactroban Nasal -] 1 applic NS BID #1 box 12/08/16 Sulfamethoxazole/Trimethoprim [Bactrim Ds -] 1 tab PO BID #14 tablet 12/08/16 Zolpidem Tartrate [Ambien] 10 mg PO HS PRN #30 tablet MDD 1 12/08/16 Anemia: No Asthma: Yes (Pt is on MDI) Cancer: No Cardiac Disorders: No CVA: No COPD: No CHF: No Dementia: No Diabetes: No GI Disorders: No Disorders: No HTN: No Hypercholesterolemia: No Kidney Stones: No Liver Disease: No Psychiatric Problems: Yes (anxiety) Suicide Attempt (Hx): No (denies) Seizures: No Thyroid Disease: No - Reproductive History LMP Normal: Yes Is Patient Now?: No PID: No - Immunization History Td Vaccination: Yes Immunization Up to Date: Yes - Psycho/Social/Smoking Cessation Hx Anxiety: Yes Suicidal Ideation: No Smoking Status: No Smoking History: Current every day smoker Have you smoked in the past 12 months: Yes Number of Cigarettes Smoked Daily: 10 Information on smoking cessation initiated: No 'Breaking Loose' booklet given: 11/13/15 Hx Alcohol Use: No Drug/Substance Use Hx: Yes Substance Use Type: Opiates, Prescribed Hx Substance Use Treatment: Yes (SUBOXONE) Patient Lives Alone: No Review of Systems - Review of Systems Able to Perform ROS?: Yes Constitutional: No: Symptoms Reported HEENTM: Yes: Nose Pain, Nose Congestion Respiratory: No: Symptoms reported Cardiac (ROS): No: Symptoms Reported ABD/GI: No: Symptoms Reported : No: Symptoms Reported Musculoskeletal: No: Symptoms Reported Integumentary: Yes: Lumps (rt nasal fold). No: Erythema Neurological: Yes: Headache (frontal) Endocrine: No: Symptoms Reported *Physical Exam - Vital Signs Last Vital Signs Temp Pulse Resp BP Pulse Ox 98.3 F 86 18 141/78 99 12/22/16 16:59 12/22/16 16:59 12/22/16 16:59 12/22/16 16:59 12/22/16 16:59 - Physical Exam General Appearance: Yes: Nourished, Appropriately Dressed. No: Apparent Distress HEENT: positive: EOMI, JESSICA, TMs Normal, Pharynx Normal, Sinus Tenderness ( fronatal and maxillary). negative: Pale Conjunctivae, Nasal Congestion, Rhinorrhea Neck: positive: Normal Thyroid, Supple. negative: Lymphadenopathy (R), Lymphadenopathy (L) Respiratory/Chest: positive: Lungs Clear, Normal Breath Sounds. negative: Respiratory Distress, Accessory Muscle Use Cardiovascular: positive: Regular Rhythm, Regular Rate. negative: Murmur Gastrointestinal/Abdominal: positive: Soft. negative: Tenderness Integumentary: positive: Normal Color, Warm, Moist, Swelling (mild to nasolabial fold and rt cheek . Approx 2 cm in diameter) Neurologic: positive: Normal Mood/Affect, Motor Strength 5/5 (ambulatory) ED Treatment Course - ADDITIONAL ORDERS Additional order review: Laboratory Results 12/22/16 17:15 Urine Color Yellow Urine Appearance Clear Urine pH 6.0 Urine Protein Negative Urine Glucose (UA) Negative Urine Ketones Trace H Urine Blood Negative Urine Nitrite Negative Urine Bilirubin Negative Urine Urobilinogen Negative Ur Leukocyte Esterase Trace H Urine HCG, Qual Negative - RADIOLOGY Radiology Studies Ordered: Category Date Time Status SINUS CT W/O CONTRAST [CT] Stat CT Scan 12/22/16 18:10 Ordered Medical Decision Making - Medical Decision Making 12/22/16 18:38 Patient with recurrent sinusitis and recently admitted for right facial cellulitis being treated with vancomycin. Patient as on exam had facial tenderness over the right maxillary sinus. Patient has normal vital signs and otherwise had no acute findings except for subjective information. patient was ordered for facial CT . Will decide disposition once results are reviewed.
--- NOTE | 2016-12-22 19:26 | PDOC ---
*Physical Exam - Vital Signs Last Vital Signs Temp Pulse Resp BP Pulse Ox 98.3 F 86 18 141/78 99 12/22/16 16:59 12/22/16 16:59 12/22/16 16:59 12/22/16 16:59 12/22/16 16:59 ED Treatment Course - ADDITIONAL ORDERS Additional order review: Laboratory Results 12/22/16 17:15 Urine Color Yellow Urine Appearance Clear Urine pH 6.0 Urine Protein Negative Urine Glucose (UA) Negative Urine Ketones Trace H Urine Blood Negative Urine Nitrite Negative Urine Bilirubin Negative Urine Urobilinogen Negative Ur Leukocyte Esterase Trace H Urine HCG, Qual Negative Progress Note - Progress Note Progress Note: Patient came to the emergency department for possible facial cellulitis. Facial CT was ordered without contrast. Preliminary report, impression: Chronic sinusitis mainly in the right maxillary antrum with questionable air-fluid level , cannot rule out superimposed acute sinusitis. Patient is currently on Augmentin. Patient's resting comfortably on the stretcher in the emergency department and wishes to be discharged. *DC/Admit/Observation/Transfer Diagnosis at time of Disposition: Chronic sinusitis Qualifiers: Sinusitis location: maxillary Qualified Code(s): J32.0 - Chronic maxillary sinusitis - Discharge Dispostion Disposition: HOME Condition at time of disposition: Stable Admit: No - Referrals Referrals: Justin Perez MD [Primary Care Provider] - Arian Crow MD [Staff Physician] - - Patient Instructions Printed Discharge Instructions: DI for Sinusitis Additional Instructions: You must follow with an ENT physician or the one listed on your discharge (Dr. Crow). Continue your Augmentin as prescribed Return back to the ER for severe/persistent or worsening symptoms
[2016-12-22] MEDS ORDERED: KETOROLAC TROMETHAMINE 60 MG/2 ML VIAL IM ONE (19:29)
[2016-12-22] MEDS ORDERED: KETOROLAC TROMETHAMINE 60 MG/2 ML VIAL ONE (19:31)
[2016-12-22 20:03] LABS: URINE BACTERIA RARE /hpf (NONE SEEN); URINE MUCUS RARE; URINE RBC 6 /hpf (0-3); URINE WBC 5 /hpf (3-5)
== END 2016-12-22 20:19 | disposition home or self-care (01) ==
LOC: JER 16:36
PROC: 3E0333Z Introduction of Anti-inflammatory into Peripheral Vein, Percutaneous Approach (ICD-10-PCS; principal; 2016-12-22)
DX: J32.0 Chronic maxillary sinusitis (principal); F41.9 Anxiety disorder, unspecified; F17.210 Nicotine dependence, cigarettes, uncomplicated
CPT/HCPCS: 70486-TC; 81003; 81015; 84703; 96372; 99282-25

== ENCOUNTER 2017-02-24 17:33 | Emergency (ER) | payer OTHER ==
[2017-02-24 18:25] VITALS: BP 133/88; PULSE 73; TEMP 98.6; BMI 38.0
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
--- NOTE | 2017-02-24 19:02 | PDOC ---
Attending Attestation - Resident Resident Name: Joey Marsh - ED Attending Attestation I have performed the following: I have examined & evaluated the patient, The case was reviewed & discussed with the resident, I agree w/resident's findings & plan, Exceptions are as noted - HPI HPI: 02/24/17 19:00 Syncope in her doctors office, one of several episodes since she has not had her suboxone. - Physicial Exam PE: 02/24/17 19:01 No focality/ Benign - Medical Decision Making 02/24/17 19:01 Small BROWN, she can take her own suboxone. Anticipate DC Home if BROWN Negative
[2017-02-24 19:25] LABS: URINE APPEARANCE CLEAR; URINE BILIRUBIN NEGATIVE (NEGATIVE); URINE BLOOD NEGATIVE (NEGATIVE); URINE COLOR STRAW; URINE GLUCOSE (UA) NEGATIVE (NEGATIVE); URINE KETONE NEGATIVE (NEGATIVE); URINE LEUK ESTERASE NEGATIVE (NEGATIVE); URINE NITRITE NEGATIVE (NEGATIVE); URINE PROTEIN NEGATIVE (NEGATIVE); URINE UROBILINOGEN NEGATIVE mg/dL (0.2-1.0)
[2017-02-24 19:29] LABS: BASOPHIL 0.5 % (0-2.0); EOSINOPHIL 2.1 % (0-4.5); MCH 25.5 pg (25.7-33.7); MEAN CELL VOLUME 79.5 fl (80-96); MEAN PLT VOLUME 8.4 fl (7.5-11.1); NEUTROPHILS 54.3 % (42.8-82.8); PLATELET COUNT 291 K/MM3 (134-434); RDW 16.8 % (11.6-15.6); WHITE BLOOD COUNT 6.6 K/mm3 (4.0-10.0)
[2017-02-24 20:24] LABS: ALBUMIN 3.8 g/dl (3.4-5.0); ANION GAP 6 (8-16); BILIRUBIN,TOTAL 0.3 mg/dL (0.2-1.0); CALCIUM 9.2 mg/dL (8.5-10.1); CO2 29 mmol/L (21-32); CREATININE 0.7 mg/dL (0.55-1.02); GLUCOSE,RANDOM 108 mg/dL (74-106); SGOT/AST 23 U/L (15-37); SGPT/ALT 30 U/L (12-78); TOT PROT 7.3 g/dl (6.4-8.2)
[2017-02-24 20:26] LABS: ALK PHOS 82 U/L (45-117); CPK 54 IU/L (26-192); TROPONIN I < 0.02 ng/ml (0.00-0.05)
--- NOTE | 2017-02-24 21:27 | PDOC ---
*Physical Exam - Vital Signs Last Vital Signs Temp Pulse Resp BP Pulse Ox 98.6 F 73 18 133/88 100 02/24/17 18:11 02/24/17 18:11 02/24/17 18:11 02/24/17 18:11 02/24/17 18:11 ED Treatment Course - LABORATORY CBC & Chemistry Diagram: 02/24/17 19:00 02/24/17 19:00 - ADDITIONAL ORDERS Additional order review: Laboratory Results 02/24/17 02/24/17 02/24/17 19:00 19:00 18:56 Sodium 139 Potassium 4.6 Chloride 104 Carbon Dioxide 29 Anion Gap 6 L BUN 15 Creatinine 0.7 D Creat Clearance w eGFR > 60 Random Glucose 108 H D Calcium 9.2 Total Bilirubin 0.3 D AST 23 ALT 30 Alkaline Phosphatase 82 D Creatine Kinase 54 Troponin I < 0.02 Total Protein 7.3 D Albumin 3.8 D Beta HCG, Quant < 1.0 Urine Color Straw Urine Appearance Clear Urine pH 7.0 Urine Protein Negative Urine Glucose (UA) Negative Urine Ketones Negative Urine Blood Negative Urine Nitrite Negative Urine Bilirubin Negative Urine Urobilinogen Negative Ur Leukocyte Esterase Negative 02/24/17 19:00 RBC 4.87 MCV 79.5 L MCHC 32.0 RDW 16.8 H MPV 8.4 Neutrophils % 54.3 Lymphocytes % 36.2 D Monocytes % 6.9 Eosinophils % 2.1 Basophils % 0.5 Medical Decision Making - Medical Decision Making 02/24/17 21:25 Signed out from day team. BROWN negative. Similar previous sinus rhythm EKG with short pr Follow up with pcp 02/24/17 21:27 *DC/Admit/Observation/Transfer Diagnosis at time of Disposition: Syncope, Opioid dependence with withdrawal - Discharge Dispostion Condition at time of disposition: Improved Admit: No - Referrals Referrals: Lis Fonseca [Primary Care Provider] -
--- NOTE | 2017-02-25 15:31 | EKG ---
Test Reason : Blood Pressure : / mmHG Vent. Rate : 067 BPM Atrial Rate : 067 BPM P-R Int : 110 ms QRS Dur : 088 ms QT Int : 384 ms P-R-T Axes : 017 049 036 degrees QTc Int : 405 ms SINUS RHYTHM WITH SINUS ARRHYTHMIA WITH SHORT SC OTHERWISE NORMAL ECG NO PREVIOUS ECGS AVAILABLE Confirmed by LUCINDA CARRIZALES, MARTINEZ ([id number]) on 02/25/2017 3:31:15 PM Referred By: Confirmed By:MARTINEZ JANE MD
== END 2017-02-24 23:25 | disposition left against medical advice (07) ==
LOC: JER 17:33
DX: R55 Syncope and collapse (principal); F11.23 Opioid dependence with withdrawal; F31.9 Bipolar disorder, unspecified; J45.909 Unspecified asthma, uncomplicated; Z86.14 Personal history of Methicillin resistant Staphylococcus aureus infection; Z88.8 Allergy status to other drugs, medicaments and biological substances; Z91.013 Allergy to seafood
CPT/HCPCS: 36415; 80053; 81003; 84484; 84702; 85025; 93005; 93010; 99284-25

== ENCOUNTER 2018-04-17 23:51 | Emergency (ER) | payer OTHER ==
[2018-04-18 00:18] VITALS: BMI 35.2
[2018-04-18] MEDS ORDERED: SODIUM CHLORIDE 0.9% 1000 ML INFUS.BAG IV STA (00:34)
[2018-04-18] MEDS ORDERED: ACETAMINOPHEN/CAFFEINE/BUTALBITAL 1 TAB PO ONE (00:40)
[2018-04-18] MEDS ORDERED: ONDANSETRON 4 MG TABLET PO ONE (00:40)
--- NOTE | 2018-04-18 00:42 | PDOC ---
History of Present Illness - General Chief Complaint: Pain, Acute Stated Complaint: SICK Time Seen by Provider: 04/17/18 23:57 - History of Present Illness Initial Comments: 04/18/18 00:36 27 yo F with h/o asthma, ADHD, bipolar disorder, depression, polysubstance abuse (opiod detox program; no longer on Suboxone), obesity, glaucoma, MRSA of face, syrinx of spinal cord (T4-T6), benign tumor of pituitary gland who p/w left sided facial swelling and pressure. Patient reports waking up this AM, with left sided facial pain, redness, and swelling, with yellow drainage from left sided nare, and from crevice of left sided nare. Reports "yellow discharge " on her pillow upon waking up. Has endorses visual spotting, left sided teeth pain, GAONA,nausea without vomiting, F/C, with T-max 101 today. Left sided facial pain exacerbated with mastication and opening mouth. Pain not improved with OTC Ibuprofen this AM, but fever improved to 99.0. Symptoms similar to prior presentation of facial MRSA. Recently treated for cellulitis of the back x 10 days and finished course of Clindamyicn 04/14/18. Patient denies facial droop, hoarseness, difficulty swallowing, throat pain, vision change, CP, SOB, urinary complaints, abdominal pain, diarrhea, constipation, lightheadedness, weakness, sensory changes. PMHx: as noted above ROS: as noted SHx: 1/ ppd tobacco for 8 years. Social Etoh. Allergies: Diphenhydramine, Topimax, Lamotrigine Past History - Past Medical History Allergies/Adverse Reactions: Allergies Allergy/AdvReac Type Severity Reaction Status Date / Time Fish Containing Products Allergy Verified 04/18/18 00:09 lamotrigine [From Lamictal] Allergy Verified 04/18/18 00:09 levonorgestrel-ethinyl Allergy Verified 04/18/18 00:09 estradiol [From Seasonale] topiramate [From Topamax] Allergy Verified 04/18/18 00:09 diphenhydramine HCl AdvReac Verified 04/18/18 00:09 [From Benadryl] liquid soap with perfume Allergy Uncoded 04/18/18 00:09 Home Medications: Ambulatory Orders Albuterol [Ventolin] 17 gm IH PRN PRN #1 aerosol 11/04/11 Alprazolam [Xanax] 2 mg PO TID PRN 07/04/15 Fluticasone Prop 0.05% Nasal [Flonase -] 2 spray NS DAILY 11/13/15 Zolpidem Tartrate [Ambien Cr] 10 mg PO HS 03/10/16 Quetiapine Fumarate [Seroquel] 100 mg PO HS 12/03/16 Montelukast Na [Singulair -] 10 mg PO HS tablet 12/08/16 Buprenorphine HCl/Naloxone HCl [Suboxone 8 mg-2 mg Sl Tablets] 1 each SL TID 04/04 Duloxetine HCl [Cymbalta -] 60 mg PO DAILY 02/24/17 Omeprazole 40 mg PO DAILY 02/24/17 Clindamycin [Cleocin -] 150 mg PO Q8H #21 capsule 06/11/17 Clindamycin [Cleocin -] 300 mg PO TID #21 capsule 06/11/17 Diclofenac Sodium 75 mg PO BID #14 tablet. 06/11/17 Methocarbamol [Robaxin -] 1,500 mg PO Q8H PRN #30 tablet 03/09/18 Chlorhexidine Gluconate [Antiseptic Skin Cleanser] 100 ml TP DAILY #2400 liquid 04/18/18 Chlorhexidine Gluconate [Scrub Chlorhexidine Gluconate] 100 ml TP DAILY #2800 ml 04/18/18 Mupirocin Ointment [Bactroban 2% Ointment -] 1 applic TP BID #1 applic 04/18/18 Mupirocin Ointment [Bactroban 2% Ointment -] 1 applic TP BID #1 applic 04/18/18 Sulfamethoxazole/Trimethoprim [Bactrim Ds -] 1 tab PO BID #14 tablet 04/18/18 Sulfamethoxazole/Trimethoprim [Bactrim Ds -] 1 tab PO BID #14 tablet 04/18/18 Anemia: No Asthma: Yes (Pt is on MDI) Cancer: No Cardiac Disorders: No CVA: No COPD: No CHF: No Dementia: No Diabetes: No GI Disorders: No Disorders: No HTN: No Hypercholesterolemia: No Kidney Stones: No Liver Disease: No Psychiatric Problems: Yes (anxiety, bipolar) Seizures: No Thyroid Disease: No - Reproductive History PID: No - Immunization History Td Vaccination: Yes Immunization Up to Date: Yes - Suicide/Smoking/Psychosocial Hx Smoking Status: No Smoking History: Never smoked Have you smoked in the past 12 months: No Number of Cigarettes Smoked Daily: 3 Information on smoking cessation initiated: No 'Breaking Loose' booklet given: 06/11/17 Hx Alcohol Use: No Drug/Substance Use Hx: No Substance Use Type: None Hx Substance Use Treatment: Yes (SUBOXONE) Review of Systems - Review of Systems Comments:: 04/18/18 00:49 GENERAL/CONSTITUTIONAL:+fever and chills. No weakness. HEAD, EYES, EARS, NOSE AND THROAT:+ Facial pain left sided. No change in vision. No ear pain or discharge. No sore throat. CARDIOVASCULAR: No chest pain or shortness of breath RESPIRATORY: No cough, wheezing, or hemoptysis. GASTROINTESTINAL: + nausea. No diarrhea or constipation. GENITOURINARY: No dysuria, frequency, or change in urination. MUSCULOSKELETAL: No joint or muscle swelling or pain. No neck or back pain. SKIN: No rash NEUROLOGIC:+headache. No vertigo, loss of consciousness, or change in strength/ sensation. ENDOCRINE: No increased thirst. No abnormal weight change HEMATOLOGIC/LYMPHATIC: No anemia, easy bleeding, or history of blood clots. ALLERGIC/IMMUNOLOGIC: No hives or skin allergy. *Physical Exam - Vital Signs Last Vital Signs Temp Pulse Resp BP Pulse Ox 99.4 F 105 H 18 114/77 97 04/18/18 00:04 04/18/18 00:04 04/18/18 00:04 04/18/18 00:04 04/18/18 00:04 - Physical Exam Comments: 04/18/18 00:50 GENERAL: Awake, alert, and fully oriented, in no acute distress HEAD: No signs of trauma, normocephalic, atraumatic EYES: PERRLA, EOMI, sclera anicteric, conjunctiva clear ENT: + Left sided maxiallry sinus ttp. + yellow discoloration at crease of left ala, with yellow drainage from left nare. + Left sided maxillary erythema, warmth, ttp. Auricles normal inspection, hearing grossly normal, oropharynx clear without exudates. Moist mucosa NECK: Normal ROM, supple, no lymphadenopathy, JVD, or masses LUNGS: No distress, speaks full sentences, clear to auscultation bilaterally HEART: Regular rate and rhythm, normal S1 and S2, no murmurs, rubs or gallops, peripheral pulses normal and equal bilaterally. EXTREMITIES : Normal inspection, Normal range of motion, no edema. No clubbing or cyanosis. SKIN: Warm, Dry, normal turgor, no rashes or lesions noted ED Treatment Course - LABORATORY CBC & Chemistry Diagram: 04/18/18 00:34 04/18/18 01:22 Medical Decision Making - Medical Decision Making 04/18/18 00:47 27 yo F with h/o asthma, ADHD, bipolar disorder, depression, polysubstance abuse (opiod detox program; no longer on Suboxone), obesity, glaucoma, MRSA of face, syrinx of spinal cord (T4-T6), benign tumor of pituitary gland who p/w left sided facial swelling and pressure. HR 105, Temp 99.4, vitals otherwise wnl. + Left sided maxiallry sinus ttp. + yellow discoloration at crease of left ala, with yellow drainage from left nare. + Left sided maxillary erythema, warmth, ttp. Probable left sided facial cellulitis vs.No evidence of abscess, mastoiditis, retropharyngeal abscess, tonsilar abscess. Prior facial/nare culture + MRSA sensitive to Bactrim, resistant to Clindamycin. ED course: cbc, cmp, LA, VBG, Cardiac, Pt/INR, UA, Urine Cx. Blood Cx. Wound Cx. EKG Tylenol, NS 30 cc/kg, Fiorocet, Zofran EKG: NSR with SC 110. Absent JOS, STD. Normal axis. 04/18/18 02:19 CBC, Unremarkable CMP: Unremarkable HCG: neg UA: Neg Trop: Neg 04/18/18 02:42 Patient with frequent MRSA infections, nml WBC count. She will f/u with infectious disease. Sent Bactrim, and chlorahexadene to pharmacy. Patient stable for d/c with return precautions. *DC/Admit/Observation/Transfer Diagnosis at time of Disposition: Cellulitis Qualifiers: Site of cellulitis: face Qualified Code(s): L03.211 - Cellulitis of face - Discharge Dispostion Disposition: HOME Condition at time of disposition: Stable Decision to Admit order: No - Prescriptions Prescriptions: Chlorhexidine Gluconate [Scrub Chlorhexidine Gluconate] 100 ml TP DAILY #2800 ml Chlorhexidine Gluconate [Antiseptic Skin Cleanser] 100 ml TP DAILY #2400 liquid Mupirocin Ointment [Bactroban 2% Ointment -] 1 applic TP BID #1 applic Mupirocin Ointment [Bactroban 2% Ointment -] 1 applic TP BID #1 applic Sulfamethoxazole/Trimethoprim [Bactrim Ds -] 1 tab PO BID #14 tablet Sulfamethoxazole/Trimethoprim [Bactrim Ds -] 1 tab PO BID #14 tablet - Referrals Referrals: Lis Fonseca [Primary Care Provider] - - Patient Instructions Printed Discharge Instructions: DI for Methicillin-Resistant Staph Infection ( MRSA) Additional Instructions: Please return to the emergency department with any new or worsening symptoms or concerns. Please follow up with your primary care physician within 72 hours. Please take Bactrim two times a day for 7 days. Please wash face with Chlorhexidine daily, and apply Mupirocin to both nares two times a day. Take Ibruprofen and Tylenol as needed for pain. - Post Discharge Activity - Attestations Physician Attestion: 04/18/18 02:21 I attest to the information provided in this note.
--- NOTE | 2018-04-18 01:17 | PDOC ---
Attending Attestation - Resident Resident Name: Fred Antoine - ED Attending Attestation I have performed the following: I have examined & evaluated the patient, The case was reviewed & discussed with the resident, I agree w/resident's findings & plan, Exceptions are as noted - HPI HPI: 04/18/18 02:46 27 yo female with a history of recerrent MRSA infections presents with left nares tenderness and erythema - Physicial Exam PE: 04/18/18 02:47 wnwd 27 yo female in no acute distress. she is afebrile Face there is area of tenderness and erythema adjacent to her her left nares, no rhinorhhea eyes abimbola eomi neck supple lungs cta b/l cvs [id number] abd nontender extremities no abscesses skin warm and dry neuro axox3,ambulatory ,no gross focal neuro deficits psych anxious - Medical Decision Making 04/18/18 02:50 PMH recurrent MRSA infections 04/18/18 02:51 pt was seen last yeawr for very similar scenario and ID recommneded she 1)use chlohexidine washes for 7 days 2) use muri
[2018-04-18 01:48] LABS: BASO % 0.6 % (0-2.0); HEMATOCRIT 33.5 % (32.4-45.2); HEMOGLOBIN 10.9 GM/dL (10.7-15.3); LYMPH % 19.8 % (8-40); MCH 25.9 pg (25.7-33.7); MCHC 32.5 g/dl (32.0-36.0); MEAN CELL VOLUME 79.6 fl (80-96); MEAN PLT VOLUME 9.2 fl (7.5-11.1); NEUT % 63.6 % (42.8-82.8); PLATELET COUNT 192 K/MM3 (134-434); RBC 4.21 M/mm3 (3.60-5.2); RDW 15.2 % (11.6-15.6); WHITE BLOOD COUNT 4.5 K/mm3 (4.0-10.0)
[2018-04-18] MEDS ORDERED: ONDANSETRON 4 MG/2 ML VIAL ONE (01:51)
[2018-04-18] MEDS ORDERED: ACETAMINOPHEN/CAFFEINE/BUTALBITAL 1 TAB ONE (01:51)
[2018-04-18] MEDS ORDERED: SULFAMETHOXAZOLE/TRIMETHOPRIM 800MG/160MG D.S. TABLET PO ONE (02:04)
[2018-04-18 02:11] LABS: INR 1.26 (0.83-1.09); PROTHROMBIN TIME (PATIENT) 14.9 SEC (9.7-13.0)
[2018-04-18 02:14] LABS: ACTIVATED PTT 30.5 SECONDS (25.2-36.5)
[2018-04-18 02:21] LABS: ALBUMIN 3.4 g/dl (3.4-5.0); ALK PHOS 89 U/L (45-117); ANION GAP 9 MMOL/L (8-16); BILIRUBIN,TOTAL 0.4 mg/dL (0.2-1); BLOOD UREA NITROGEN 8 mg/dL (7-18); CALCIUM 8.5 mg/dL (8.5-10.1); CHLORIDE 103 mmol/L (98-107); CO2 25 mmol/L (21-32); CREATININE 0.8 mg/dL (0.55-1.3); GLUCOSE,RANDOM 87 mg/dL (74-106); POTASSIUM 3.2 mmol/L (3.5-5.1); SGOT/AST 43 U/L (15-37); SGPT/ALT 26 U/L (13-61); SODIUM 137 mmol/L (136-145); TOT PROT 6.6 g/dl (6.4-8.2)
[2018-04-18] MEDS ORDERED: SULFAMETHOXAZOLE/TRIMETHOPRIM 800MG/160MG D.S. TABLET ONE (02:37)
[2018-04-18 03:11] VITALS: BP 136/78; PULSE 88; TEMP 98.8
--- NOTE | 2018-04-19 10:46 | EKG ---
Test Reason : Blood Pressure : / mmHG Vent. Rate : 089 BPM Atrial Rate : 089 BPM P-R Int : 110 ms QRS Dur : 088 ms QT Int : 366 ms P-R-T Axes : 023 028 011 degrees QTc Int : 445 ms SINUS RHYTHM WITH SHORT AL OTHERWISE NORMAL ECG WHEN COMPARED WITH ECG OF 24-FEB-2017 19:30, NONSPECIFIC T WAVE ABNORMALITY NOW EVIDENT IN ANTERIOR LEADS Confirmed by Samy Wilkins MD ([id number]) on 04/19/2018 10:46:17 AM Referred By: Confirmed By:Samy Wilkins MD
== END 2018-04-18 03:11 | disposition home or self-care (01) ==
LOC: JER 23:51
DX: L03.211 Cellulitis of face (principal); Z86.14 Personal history of Methicillin resistant Staphylococcus aureus infection; J45.909 Unspecified asthma, uncomplicated; F90.9 Attention-deficit hyperactivity disorder, unspecified type; F31.9 Bipolar disorder, unspecified; F32.9 Major depressive disorder, single episode, unspecified; H26.9 Unspecified cataract
CPT/HCPCS: 36415; 80053; 83605; 84484; 84703; 85025; 85610; 85730; 87040; 93005; 93010; 99283-25; J7030

== ENCOUNTER 2018-05-03 11:47 | Emergency (ER) | payer OTHER ==
[2018-05-03 11:58] VITALS: BMI 35.2
--- NOTE | 2018-05-03 12:36 | PDOC ---
History of Present Illness - General Chief Complaint: Redness To Affected Area Stated Complaint: INFECTION TO NOSE, ARM ABSCESS Time Seen by Provider: 05/03/18 12:14 History Source: Patient Exam Limitations: No Limitations - History of Present Illness Initial Comments: 05/03/18 12:34 27 year old with history of opioid abuse (on buprenorphine), obesity, migraines , ADHD, bipolar disorder, spinal syrinx (T4-T6), asthma, benign tumor of pituitary gland and prior MRSA infections presents with 1 week of L antecubital fossa abscess and 2 days of fever (Tmax 102.7F) and productive cough with yellow /green phlegm. The patient notes a lack of resolution of cellulitis along the nasopharynx causing pain, redness and pus drainage from the nasal mucosa. The patient had a previous cellulitic infection on the upper back now resolved. The patient has been on courses of bactrim and clindamycin for these infection with minimal relief and was given a course of vancomycin 1 week ago The patient was sent by her ID Dr. Hinton today who sent her to the ED for evaluation of L antecubital fossa abscess and possible I&D. If patient does not meet admission criteria, ID would like patient to be d/c on 2 weeks of doxycycline course, PCP: Marian Past History - Past Medical History Allergies/Adverse Reactions: Allergies Allergy/AdvReac Type Severity Reaction Status Date / Time Fish Containing Products Allergy Verified 05/03/18 11:53 lamotrigine [From Lamictal] Allergy Verified 05/03/18 11:53 levonorgestrel-ethinyl Allergy Verified 05/03/18 11:53 estradiol [From Seasonale] topiramate [From Topamax] Allergy Verified 05/03/18 11:53 diphenhydramine HCl AdvReac Verified 05/03/18 11:53 [From Benadryl] liquid soap with perfume Allergy Uncoded 05/03/18 11:53 Home Medications: Ambulatory Orders Montelukast Na [Singulair -] 10 mg PO HS tablet 12/08/16 Duloxetine HCl [Cymbalta -] 60 mg PO DAILY 02/24/17 Doxycycline Hyclate 100 mg PO BID 14 Days #28 tablet 05/03/18 Ranitidine HCl [Zantac] 300 mg PO HS 05/03/18 Anemia: No Asthma: Yes (Pt is on MDI) Cancer: No Cardiac Disorders: No CVA: No COPD: No CHF: No Dementia: No Diabetes: No GI Disorders: No Disorders: No HTN: No Hypercholesterolemia: No Kidney Stones: No Liver Disease: No Psychiatric Problems: Yes (anxiety, bipolar) Seizures: No Thyroid Disease: No - Reproductive History PID: No - Immunization History Td Vaccination: Yes Immunization Up to Date: Yes - Suicide/Smoking/Psychosocial Hx Smoking Status: No Smoking History: Current every day smoker Have you smoked in the past 12 months: No Number of Cigarettes Smoked Daily: 6 Information on smoking cessation initiated: Yes 'Breaking Loose' booklet given: 05/03/18 Hx Alcohol Use: No Drug/Substance Use Hx: No Substance Use Type: Alcohol, Cocaine Hx Substance Use Treatment: Yes (SUBOXONE) Review of Systems - Review of Systems Able to Perform ROS?: Yes Is the patient limited [place] proficient: No Constitutional: Yes: Fever. No: Chills, Diaphoresis *Physical Exam - Vital Signs Last Vital Signs Temp Pulse Resp BP Pulse Ox 98.9 F 78 18 129/60 99 05/03/18 11:54 05/03/18 11:54 05/03/18 11:54 05/03/18 11:54 05/03/18 11:54 - Physical Exam Comments: 05/03/18 13:13 GENERAL: Awake, alert, and fully oriented, in no acute distress HEAD: No signs of trauma, normocephalic, atraumatic EYES: PERRLA, EOMI, sclera anicteric, conjunctiva clear ENT: Auricles normal inspection, hearing grossly normal, L nares with edema on mm and some crusting of blood, oropharynx clear without exudates. Moist mucosa NECK: Normal ROM, supple, no lymphadenopathy LUNGS: No distress, speaks full sentences, clear to auscultation bilaterally HEART: Regular rate and rhythm, normal S1 and S2, no murmurs, rubs or gallops, peripheral pulses normal and equal bilaterally. ABDOMEN: Soft, nontender, normoactive bowel sounds. No guarding, no rebound. No masses EXTREMITIES : 2.5cm diameter hard, indurated abscess on L AC fossa, mild erythema around the abscess, warm to touch, Normal range of motion, no edema. No clubbing or cyanosis. NEUROLOGICAL: Cranial nerves II through XII grossly intact. Normal speech, normal gait, no focal sensorimotor deficits SKIN: Warm, Dry, normal turgor, no rashes or lesions noted ED Treatment Course - LABORATORY CBC & Chemistry Diagram: 05/03/18 13:21 05/03/18 13:21 Medical Decision Making - Medical Decision Making 05/03/18 13:15 27 year old with history of opioid abuse (on buprenorphine), obesity, migraines , ADHD, bipolar disorder, spinal syrinx (T4-T6), asthma, benign tumor of pituitary gland and prior MRSA infections presents with 1 week of L antecubital fossa abscess and 2 days of fever (Tmax 102.7F) and productive cough with yellow /green phlegm. The patient notes a lack of resolution of cellulitis along the nasopharynx causing pain, redness and pus drainage from the nasal mucosa. DDX including but not limited to: cellulitis vs bacteremia vs PNA W/U: - cbc, cmp, blood cx - cxr TX: - Tylenol - Reglan - 1L NS ED Course: Patient stable. No acute distress. CBC: wbc 4 Upreg negative CXR ordered. UA: negative Nitrite, negative leuk esterase. US of abscess performed. Did not show significant fluid collection for I&D. 05/03/18 14:29 *DC/Admit/Observation/Transfer Diagnosis at time of Disposition: Abscess - Discharge Dispostion Disposition: HOME Condition at time of disposition: Stable Decision to Admit order: No - Referrals Referrals: Lis Fonseca [Primary Care Provider] - Carolina Patel MD [Staff Physician] - - Patient Instructions Printed Discharge Instructions: DI for Skin Abscess Additional Instructions: You were seen in the ED for complaints of L skin abscess. In the ED you were evaluated with labwork and imaging. Your results were unremarkable. There does not appear to be an acute need for immediate hospitalization. You are advised to follow up with your primary care physician within 1 week. You were given a referral to Infectious Disease physicians and are advised to follow up within 1 week. You were given a prescription for antibiotics and are advised to medications as directed. Return to the ED immediately if you experience worsening pain at site of abscess , drainage from the wound, redness or rash around the lesion, fevers, nausea, vomiting or new abscesses or lesions. - Post Discharge Activity
[2018-05-03] MEDS ORDERED: ACETAMINOPHEN 1000 MG/100 ML VIAL (NON FORMULARY) IVPB ONE (12:42)
[2018-05-03] MEDS ORDERED: SODIUM CHLORIDE 1,000 ML IV SCH (12:45)
--- NOTE | 2018-05-03 12:45 | PDOC ---
Attending Attestation - Resident Resident Name: Maggie Maxwell - ED Attending Attestation I have performed the following: I have examined & evaluated the patient, The case was reviewed & discussed with the resident, I agree w/resident's findings & plan, Exceptions are as noted - HPI HPI: Patient is a 27 year old female with a significant past medical history of asthma, anxiety, Attention-deficit/hyperactivity disorder, bipolar disorder, depression, polysubstance abuse (opioid detox program; was on Suboxone), glaucoma, Methicillin-resistant Staphylococcus aureus, obesity, syrinx in her spinal cord (T4-T6), benign tumor in her pituitary gland and cysts who presents to the ED with complaints of left anterior elbow mass s/p bug bite that occured 1 week ago. Patient reports experiencing a bug bite last week as well as gradual development of left forearm abscess, prompting her to see Infectious disease physician this morning. She reports being seen and advised to come into the the ED for further evaluation. Patient reports experiencing associated episodes of 2 days of nasal congestion, productive coughing with yellow green sputum, fever reaching up to 102.7, and shortness of breath Denies chest pain, nausea, vomiting. Denies contact with sick individuals, out of state travelling. Denies chills. Denies diarrhea, constipation. Denies dysuria, hematuria. Denies any other symptoms. Allergies: buprenorphine HCl, Fish Containing Products, lamotrigine, levonorgestrel-eth estra, naloxone HCl, topiramate ,diphenhydramine HCl, liquid soap with perfume Social history: Current smoker. No alcohol. No illicit drugs. Surgical history: See HPI PMD: Dr. Lis Fonseca, changing to Dr. Faye - Physicial Exam PE: 05/03/18 13:02 GENERAL: The patient is awake, alert, and fully oriented, Nontoxic - in no acute distress, obese HEAD: Normocephalic, atraumatic. EYES: extraocular movements intact, sclera anicteric, conjunctiva clear. ENT: Normal voice, Moist mucous membranes. NECK: Normal range of motion, supple LUNGS: Breath sounds equal, clear to auscultation bilaterally. No wheezes, no rhonchi, no rales. HEART: Regular rate and rhythm, normal S1 and S2 without murmur, rub or gallop. ABDOMEN: Soft, nontender, EXTREMITIES: firm indurated mass that is slightly tender, in the L AC fossa, non fluctuant NEUROLOGICAL: No facial assymetry, Normal speech, moving all 4 extremities spontaneously and symmetrically PSYCH: Normal mood, normal affect. SKIN: Warm, Dry, normal turgor, - Medical Decision Making 05/03/18 13:06 27y F hx of syrinx sent to the ED for evaluation of a possible abscess on her L AC fossa, started off as a small bug bite that she has been picking at. has gotten bigger inad painful. pt also endorses recent URI sypmtmos. +fever yesterday on exam pt i no distress +firm slightly tender, indruated mass on the L ac [place] that is not fluctuant will ck labs will US to see if there is a colelction and will ID if needed suspect her efver may be from her viral illness as her arm mass does not seem c/ w abcess 05/03/18 15:06 no signs of collection on US of the mass
[2018-05-03] MEDS ORDERED: METOCLOPRAMIDE HCL INJECTION 10 MG/2 ML VIAL IVPUSH ONE (13:11)
[2018-05-03] MEDS ORDERED: METOCLOPRAMIDE HCL INJECTION 10 MG/2 ML VIAL ONE (13:37)
[2018-05-03] MEDS ORDERED: ACETAMINOPHEN INJECTION 100 ML IVPB ONE (13:38)
[2018-05-03 13:40] LABS: BASO % 0.5 % (0-2.0); EOS % 3.4 % (0-4.5); HEMATOCRIT 32.6 % (32.4-45.2); HEMOGLOBIN 10.6 GM/dL (10.7-15.3); MCH 25.9 pg (25.7-33.7); MCHC 32.5 g/dl (32.0-36.0); MEAN CELL VOLUME 79.7 fl (80-96); MEAN PLT VOLUME 7.7 fl (7.5-11.1); MONO % 11.7 % (3.8-10.2); NEUT % 51.4 % (42.8-82.8); PLATELET COUNT 264 K/MM3 (134-434); RBC 4.08 M/mm3 (3.60-5.2); RDW 15.6 % (11.6-15.6); WHITE BLOOD COUNT 4.1 K/mm3 (4.0-10.0)
[2018-05-03 13:59] LABS: ALBUMIN 3.1 g/dl (3.4-5.0); ALK PHOS 75 U/L (45-117); ANION GAP 6 MMOL/L (8-16); BILIRUBIN,TOTAL 0.2 mg/dL (0.2-1); BLOOD UREA NITROGEN 9 mg/dL (7-18); CALCIUM 8.5 mg/dL (8.5-10.1); CHLORIDE 105 mmol/L (98-107); CO2 29 mmol/L (21-32); CREATININE 0.8 mg/dL (0.55-1.3); GLUCOSE,RANDOM 99 mg/dL (74-106); POTASSIUM 4.1 mmol/L (3.5-5.1); SGOT/AST 23 U/L (15-37); SGPT/ALT 20 U/L (13-61); SODIUM 140 mmol/L (136-145); TOT PROT 6.5 g/dl (6.4-8.2)
[2018-05-03 14:15] LABS: URINE APPEARANCE SLCLOUDY; URINE BILIRUBIN NEGATIVE (<2.0 mg/dL); URINE GLUCOSE (UA) NEGATIVE (NEGATIVE); URINE KETONE TRACE (NEGATIVE); URINE LEUK ESTERASE NEGATIVE (NEGATIVE); URINE NITRITE NEGATIVE (NEGATIVE); URINE PROTEIN 1+ (NEGATIVE); URINE UROBILINOGEN NEGATIVE mg/dL (0.2-1.0)
[2018-05-03 14:16] LABS: URINE COLOR DK YELLOW
[2018-05-03 14:29] LABS: EPI CELLS MANY /HPF (FEW); URINE MUCUS FEW
[2018-05-03] MEDS ORDERED: DOXYCYCLINE HYCLATE 100 MG CAPSULE PO ONE ×2 (16:39→16:54)
[2018-05-03 17:00] VITALS: BP 124/85; PULSE 86; TEMP 98.1
== END 2018-05-03 17:00 | disposition home or self-care (01) ==
LOC: JER 11:47
PROC: 3E033GC Introduction of Other Therapeutic Substance into Peripheral Vein, Percutaneous Approach (ICD-10-PCS; principal; 2018-05-03)
PROC: 3E033NZ Introduction of Analgesics, Hypnotics, Sedatives into Peripheral Vein, Percutaneous Approach (ICD-10-PCS; 2018-05-03)
DX: L02.01 Cutaneous abscess of face (principal); L02.91 Cutaneous abscess, unspecified; L03.114 Cellulitis of left upper limb; G43.909 Migraine, unspecified, not intractable, without status migrainosus; F31.9 Bipolar disorder, unspecified; F90.9 Attention-deficit hyperactivity disorder, unspecified type
CPT/HCPCS: 36415; 71045-TC-FY; 80053; 81003; 81015; 84703; 85025; 87040; 87086; 96374; 96375; 99283-25; J0131; J7030

== ENCOUNTER 2018-09-28 20:12 | Emergency (ER) | payer OTHER ==
--- NOTE | 2018-09-28 20:17 | PDOC ---
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 Patient describes her cough as productive with yellow- green sputum with associated chills, sore throat, headache, and wheezing. She notes that she no longer has a nebulizer machine thus, she drank a packet of albuterol without relief prompting her arrival to the ED. She denies recent nausea, vomit, diarrhea or constipation. She denies recent dysuria, frequency, urgency or hematuria. She denies recent chest pain Allergies: buprenorphine HCl, Fish Containing Products, lamotrigine, levonorgestrel-eth estra, naloxone HCl, topiramate ,diphenhydramine HCl, liquid soap with perfume Social history: Former smoker. Primary Care Physician: Dr. Martin <Pranav Loomis - Last Filed: 09/28/18 22:41> <Sobia Yi - Last Filed: 09/29/18 03:52> - General Chief Complaint: Respiratory Stated Complaint: PRODUCTIVE COUGH Time Seen by Provider: 09/28/18 20:14 Past History <Pranav Loomis - Last Filed: 09/28/18 22:41> - Past Medical History Anemia: No Asthma: Yes (Pt is on MDI) Cancer: No Cardiac Disorders: No CVA: No COPD: No CHF: No Dementia: No Diabetes: No GI Disorders: No Disorders: No HTN: No Hypercholesterolemia: No Kidney Stones: No Liver Disease: No Psychiatric Problems: Yes (anxiety, bipolar) Seizures: No Thyroid Disease: No - Reproductive History PID: No - Immunization History Td Vaccination: Yes Immunization Up to Date: Yes - Suicide/Smoking/Psychosocial Hx Smoking Status: No Smoking History: Current every day smoker Have you smoked in the past 12 months: No Number of Cigarettes Smoked Daily: 6 'Breaking Loose' booklet given: 05/03/18 Hx Alcohol Use: No Drug/Substance Use Hx: No Substance Use Type: Alcohol, Cocaine Hx Substance Use Treatment: Yes (SUBOXONE) <Sobia Yi - Last Filed: 09/29/18 03:52> - Past Medical History Allergies/Adverse Reactions: Allergies Allergy/AdvReac Type Severity Reaction Status Date / Time Fish Containing Products Allergy Verified 09/28/18 20:15 lamotrigine [From Lamictal] Allergy Verified 09/28/18 20:15 levonorgestrel-ethinyl Allergy Verified 09/28/18 20:15 estradiol [From Seasonale] topiramate [From Topamax] Allergy Verified 09/28/18 20:15 diphenhydramine HCl AdvReac Verified 09/28/18 20:15 [From Benadryl] liquid soap with perfume Allergy Uncoded 05/03/18 11:53 Home Medications: Ambulatory Orders Montelukast Na [Singulair -] 10 mg PO HS tablet 12/08/16 Albuterol Sulfate 0.5% [Ventolin 0.5% Nebulizing Soln. -] 1 amp NEB BID #30 amp 09/28/18 Azithromycin 250 mg PO DAILY #4 tablet 09/28/18 Montelukast Sodium [Singulair] 10 mg PO DAILY #20 tablet 09/28/18 Nebulizer [Aeroeclipse II] 1 each MC BID #1 each 09/28/18 Respiratory Specific PMHX - Complaint Specific PMHX TB (Tuberculosis): No <Sobia Yi - Last Filed: 09/29/18 03:52> Review of Systems - Review of Systems Able to Perform ROS?: Yes Comments:: 09/28/18 20:50 CONSTITUTIONAL: Present: Chills. Absent: no fatigue EYES: Absent: visual changes ENT: Present: Nasal congestion. Sore throat. Absent: ear pain CARDIOVASCULAR: Absent: chest pain, no palpitations RESPIRATORY: Present: cough, SOB, wheezing. GI: Absent: abdominal pain, no nausea, no vomiting, no constipation, no diarrhea GENITOURINARY: Absent: dysuria, no frequency, no hematuria MUSKULOSKELETAL: Absent: back pain, no arthralgia, no myalgia SKIN: Absent: rash NEURO: Present: headache All Other Systems: Reviewed and Negative <Pranav Loomis - Last Filed: 09/28/18 22:41> *Physical Exam - Vital Signs Last Vital Signs Temp Pulse Resp BP Pulse Ox 98.1 F 106 H 16 147/89 100 09/28/18 20:17 09/28/18 20:17 09/28/18 20:17 09/28/18 20:17 09/28/18 20:17 - Physical Exam Comments: 09/28/18 20:50 GENERAL: The patient is awake, alert, and fully oriented, in no acute distress. +HEAD: Tenderness to the left frontal region and bilateral maxillary regions. EYES: Pupils equal, round and reactive to light, extraocular movements intact, sclera anicteric, conjunctiva clear. LUNGS: Breath sounds equal, clear to auscultation bilaterally. No wheeze/ crackles. HEART: Regular rate and rhythm, normal S1 and S2 without murmur or rub. EXTREMITIES: Normal range of motion, no edema. NEUROLOGICAL: Normal speech, normal gait. PSYCH: Normal mood, normal affect. SKIN: Warm, Dry, normal turgor, no rashes or lesions noted. <Pranav Loomis - Last Filed: 09/28/18 22:41> Moderate Sedation - Procedure Monitoring Vital Signs: Procedure Monitoring Vital Signs Temperature 98.1 F 09/28/18 20:17 Pulse Rate 106 H 09/28/18 20:17 Respiratory Rate 16 09/28/18 20:17 Blood Pressure 147/89 09/28/18 20:17 O2 Sat by Pulse Oximetry (%) 100 09/28/18 20:17 <Pranav Loomis - Last Filed: 09/28/18 22:41> ED Treatment Course - Medications Given in the ED: ED Medications Discontinued Medications Generic Name Dose Route Start Last Admin Trade Name Freq PRN Reason Stop Dose Admin Azithromycin 500 mg 09/28/18 20:29 09/28/18 20:37 Zithromax PO 09/28/18 20:30 500 mg ONCE ONE Administration Montelukast Sodium 10 mg 09/28/18 20:30 09/28/18 20:37 Singulair - PO 09/28/18 20:31 10 mg ONCE ONE Administration <Pranav Loomis - Last Filed: 09/28/18 22:41> Progress Note - Progress Note Progress Note: Documentation has been prepared under my direction and personally reviewed by me in its entirety. I attest that this documented accurately reflects all work, treatment, procedures and medical decision making performed by me. <Sobia Yi - Last Filed: 09/29/18 03:52> Medical Decision Making - Medical Decision Making As noted above, this 28-year-old woman with a history of asthma (smoked until 2 months ago) presents with 4 day history of cough productive of yellowish-green sputum, sore throat, facial pain . Patient has been using her albuterol inhaler but no longer has a functional nebulizer and lost her prescription for Singulair. She states that she has been intermittently wheezing during this current illness. Exam as noted: Patient is speaking in full sentences and lung exam notable for good air exchange in no wheezing or other abnormal breath sounds. Clinical presentation most consistent with asthmatic bronchitis. The patient should have a functional nebulizer and prescription for nebulizer as well as albuterol nebulizer solution will be sent to her pharmacy. Also, since she is asthmatic with a productive cough for several days, she will be started on antibiotics (Z-Sivakumar) with the first dose of 500 mg of azithromycin given here in the emergency room. Prescription for the remainder of 250 mg 4 days sent to pharmacy. Singulair 10 mg will be given now in the ER and prescription for 10 mg daily sent to her pharmacy. Patient should follow-up with her general medical doctor in the next few days. If she has persistent shortness of breath, high fever or severe wheezing, she should return to the emergency room <Sobia Yi - Last Filed: 09/29/18 03:52> *DC/Admit/Observation/Transfer - Attestations Scribe Attestion: 09/28/18 20:50 Documentation prepared by Pranav Loomis, acting as medical assistant float for Sobia Yi MD. <Pranav Loomis - Last Filed: 09/28/18 22:41> <Sobia Yi - Last Filed: 09/29/18 03:52> Diagnosis at time of Disposition: Asthmatic bronchitis Qualifiers: Asthma severity: moderate Asthma persistence: persistent Asthma complication type: uncomplicated Qualified Code(s): J45.40 - Moderate persistent asthma, uncomplicated - Discharge Dispostion Disposition: HOME Condition at time of disposition: Stable - Prescriptions Prescriptions: Albuterol Sulfate 0.5% [Ventolin 0.5% Nebulizing Soln. -] 1 amp NEB BID #30 amp Azithromycin 250 mg PO DAILY #4 tablet Montelukast Sodium [Singulair] 10 mg PO DAILY #20 tablet Nebulizer [Aeroeclipse II] 1 each MC BID #1 each - Patient Instructions Printed Discharge Instructions: DI for Acute Bronchitis Additional Instructions: Drink plenty of fluids Azithromycin 250 mg a day for 4 days starting tomorrow Continue albuterol inhaler Albuterol nebulizer treatment twice a day Singulair 10 mg daily Follow-up with your doctor within the next 5-7 days Return to ER if you have shortness of breath/persistent wheezing/high fever
[2018-09-28 20:20] VITALS: BP 147/89; PULSE 106; TEMP 98.1; BMI 33.2
[2018-09-28] MEDS ORDERED: AZITHROMYCIN 500 MG TABLET PO ONE (20:29)
[2018-09-28] MEDS ORDERED: MONTELUKAST NA 10 MG TABLET PO ONE (20:30)
[2018-09-28] MEDS ORDERED: AZITHROMYCIN 250 MG TABLET ONE (20:34)
== END 2018-09-28 20:48 | disposition home or self-care (01) ==
LOC: FER 20:12
DX: J45.40 Moderate persistent asthma, uncomplicated (principal)
CPT/HCPCS: 99281-25

== ENCOUNTER 2018-10-24 13:37 | Emergency (ER) | payer OTHER ==
[2018-10-24 13:56] VITALS: BP 114/75; PULSE 84; TEMP 98.3; BMI 33.2
--- NOTE | 2018-10-24 14:27 | PDOC ---
History of Present Illness - General Chief Complaint: Rash Stated Complaint: rash Time Seen by Provider: 10/24/18 13:40 History Source: Patient Exam Limitations: No Limitations - History of Present Illness Initial Comments: 10/24/18 14:22 28-year-old female history of MRSA, asthma presents with complaint of a skin lesion for the past days. Pt notse she had small bump between her chest 3-4 days ago, but has gotten bigger and is now draining some whtish fluid. denies anyf everc/hills. pt also notse she has some itching under her breasts on the falnaks and under her armpits without any pain/discomfort. no new exposures. denies any othe rcomplaints inculding cp, sob, n/vm diaphrosis, abd pain, diarrhea, dysuria. pt was on abx recently for a URI (amoxicillin, augmentin) - sypmtmos have resolved for this Past History - Past Medical History Allergies/Adverse Reactions: Allergies Allergy/AdvReac Type Severity Reaction Status Date / Time Fish Containing Products Allergy Verified 10/24/18 13:39 lamotrigine [From Lamictal] Allergy Verified 10/24/18 13:39 levonorgestrel-ethinyl Allergy Verified 10/24/18 13:39 estradiol [From Seasonale] topiramate [From Topamax] Allergy Verified 10/24/18 13:39 diphenhydramine HCl AdvReac Verified 10/24/18 13:39 [From Benadryl] liquid soap with perfume Allergy Uncoded 05/03/18 11:53 Home Medications: Ambulatory Orders Montelukast Na [Singulair -] 10 mg PO HS tablet 12/08/16 Anemia: No Asthma: Yes (Pt is on MDI) Cancer: No Cardiac Disorders: No CVA: No COPD: No CHF: No Dementia: No Diabetes: No GI Disorders: No Disorders: No HTN: No Hypercholesterolemia: No Kidney Stones: No Liver Disease: No Psychiatric Problems: Yes (anxiety, bipolar) Seizures: No Thyroid Disease: No Other medical history: MRSA - Reproductive History PID: No - Immunization History Td Vaccination: Yes Immunization Up to Date: Yes - Suicide/Smoking/Psychosocial Hx Smoking Status: No Smoking History: Never smoked Have you smoked in the past 12 months: No Number of Cigarettes Smoked Daily: 6 'Breaking Loose' booklet given: 05/03/18 Hx Alcohol Use: No Drug/Substance Use Hx: No Substance Use Type: Alcohol, Cocaine Hx Substance Use Treatment: Yes (SUBOXONE) Review of Systems - Review of Systems Able to Perform ROS?: Yes Comments:: 10/24/18 14:24 Constitutional - no reported Fever, Chills, skin - +lesion on mid chest, +prutiic rash no reported bruising, erythema *Physical Exam - Vital Signs Last Vital Signs Temp Pulse Resp BP Pulse Ox 98.3 F 84 18 114/75 97 10/24/18 13:38 10/24/18 13:38 10/24/18 13:38 10/24/18 13:38 10/24/18 13:38 Medical Decision Making - Medical Decision Making 10/24/18 14:25 Suspect possible early cellulitis, will give Bactrim for coverage of MRSA No systemic complaints to suggest sepsis We will have the patient follow PMD, return precautions were discussedI discussed the physical exam findings, ancillary test results and final diagnoses with the patient. I answered all of the patient's questions. The patient was satisfied with the care received and felt comfortable with the discharge plan and treatment plan. The patient will call their primary care physician within 24 hours to arrange follow-up and will return to the Emergency Department with any new, persistent or worsening symptoms. *DC/Admit/Observation/Transfer Diagnosis at time of Disposition: Cellulitis Qualifiers: Site of cellulitis: trunk Site of cellulitis of trunk: chest wall Qualified Code(s): L03.313 - Cellulitis of chest wall - Discharge Dispostion Disposition: HOME Condition at time of disposition: Stable Decision to Admit order: No - Referrals Referrals: Tom Garcia MD [Staff Physician] - - Patient Instructions Printed Discharge Instructions: DI for Cellulitis -- Adult Additional Instructions: Return to the emergency department immediately with ANY new, persistent or worsening symptoms including any fevers, chills, increase in size of your wound or any other concerns. Continue taking yourr antibiotics as prescribed You MUST call and follow up with your doctor tomorrow for further evaluation of your symptoms. Results were discussed with you. Please make sure your doctor reviews the results of your emergency evaluation. If you had any xrays during your visit, it was read preliminarily by myself, a Radiologist will review it and if there are any additional findings we will call you. Print Language: SURINAMESE - Post Discharge Activity
== END 2018-10-24 14:36 | disposition home or self-care (01) ==
LOC: FER 13:37
DX: L03.313 Cellulitis of chest wall (principal); F41.9 Anxiety disorder, unspecified; F31.9 Bipolar disorder, unspecified; Z72.0 Tobacco use
CPT/HCPCS: 99281-25

== ENCOUNTER 2018-12-11 18:09 | Emergency (ER) | payer OTHER | END 2018-12-11 21:06 | disposition home or self-care (01) | LOC: FER 18:09 ==

== ENCOUNTER 2020-04-10 12:27 | Emergency (ER) | payer OTHER ==
[2020-04-10 12:32] VITALS: BP 116/77; PULSE 79; TEMP 98.8; BMI 34.2
[2020-04-10] MEDS ORDERED: AMOXICILLIN 500 MG CAPSULE (FP) PO ONE (12:53)
--- NOTE | 2020-04-10 12:56 | PDOC ---
History of Present Illness - General Chief Complaint: Laceration Stated Complaint: LOWER LIP CUT Time Seen by Provider: 04/10/20 12:33 - History of Present Illness Initial Comments: 04/10/20 14:53 Chief complaint: Laceration lower lip HPI: Tripped while getting out of bed in the middle of the night, fell on her right hand, which impacted her lower lip. Minimal bleeding at that time. No pain. Review of systems: Denies pain or injury to the head neck chest abdomen spine pelvis or extremities. Also notes an injury to the inside of the lip. Past medical history: Reviewed and noncontributory to this illness, but including asthma, which is controlled. No diabetes Social/family history reviewed and noncontributory Physical exam: Alert and oriented moderately obese no acute distress cooperative Afebrile, vital signs normal Head atraumatic. PERRLA, fundi benign, ENT clear 5 mm abrasion/laceration inside the lower lip, midline. Also external laceration approximately 1 cm not involving the vermilion border. Presumed through and through. No other signs of trauma to the head or face Neck without tenderness or deformity, full range of motion without pain Chest clear, full breath sounds bilaterally, no rib cage or chest wall deformity or tenderness CV regular without murmur rub or gallop Abdomen benign Spine and pelvis without visible or palpable trauma Extremities without trauma Neurological C2 to 12 intact. Strength full and symmetric. No focal sensorimotor deficits. Gait stable and unimpaired Impression: Through and through laceration of the lower lip Plan: Thorough scrub and irrigation with normal saline. Abrasion/laceration inside the lip left open. To rinse with peroxide half-strength. Skin laceration of the external lip, not involving the vermilion, was repaired using skin adhesive with good skin approximation. Clear liquids and soft diet for 48 hours. Return immediately if there is sign of infection including increased pain, swelling, redness, bleeding, or distraction of the skin edges. Otherwise follow-up primary physician as directed. Past History - Medical History Allergies/Adverse Reactions: Allergies Allergy/AdvReac Type Severity Reaction Status Date / Time Fish Containing Products Allergy Verified 04/10/20 12:27 lamotrigine [From Lamictal] Allergy Verified 04/10/20 12:27 levonorgestrel-ethinyl Allergy Verified 04/10/20 12:27 estradiol [From Seasonale] topiramate [From Topamax] Allergy Verified 04/10/20 12:27 diphenhydramine HCl AdvReac Verified 04/10/20 12:27 [From Benadryl] liquid soap with perfume Allergy Uncoded 04/10/20 12:27 Home Medications: Ambulatory Orders Penicillin V Potassium [Pen Vee K] 500 mg PO BID #10 tablet 04/10/20 Anemia: No Asthma: Yes (Pt is on MDI) Cancer: No Cardiac Disorders: No CVA: No COPD: No CHF: No Dementia: No Diabetes: No GI Disorders: No Disorders: No HTN: No Hypercholesterolemia: No Kidney Stones: No Liver Disease: No Psychiatric Problems: Yes (anxiety, bipolar) Seizures: No Thyroid Disease: No - Reproductive History Is Patient Now?: No PID: No - Immunization History Td Vaccination: Yes Immunization Up to Date: Yes - Psycho-Social/Smoking History Smoking Status: No Smoking History: Current every day smoker Have you smoked in the past 12 months: Yes Number of Cigarettes Smoked Daily: 5 Information on smoking cessation initiated: Yes 'Breaking Loose' booklet given: 05/03/18 - Substance Abuse Hx (Audit-C & DAST Scrn) How often the patient has a drink containing alcohol: Monthly or less Number of drinks the patient has on a typical day: 1 or 2 How often the patient has six or more drinks on one occasion: Less than monthly Score: In Men: 4 or > Positive; In Women: 3 or > Positive: 2 Screen Result (Pos requires Nsg. Audit-10AR): Negative In the last yr the pt used illegal drug/Rx for NonMed reason: No Score: Yes response is considered Positive: 0 Screen Result (Positive result requires Nsg. DAST-10): Negative *Physical Exam - Vital Signs Last Vital Signs Temp Pulse Resp BP Pulse Ox 98.8 F 79 16 116/77 98 04/10/20 12:27 04/10/20 12:27 04/10/20 12:27 04/10/20 12:27 04/10/20 12:27 Discharge - Discharge Information Problems reviewed: Yes Clinical Impression/Diagnosis: Laceration of lip Qualifiers: Encounter type: initial encounter Qualified Code(s): S01.511A - Laceration without foreign body of lip, initial encounter Condition: Improved Disposition: HOME - Admission No - Additional Discharge Information Prescriptions: Penicillin V Potassium [Pen Vee K] 500 mg PO BID #10 tablet - Follow up/Referral - Patient Discharge Instructions Patient Printed Discharge Instructions: DI for Laceration Repair-Skin Glue Additional Instructions: Keep clean and dry. Do not apply any creams or ointments to the area, as this may dissolve the glue. Take antibiotics as directed. If there is any sign of infection or if the wound opens, return to the ER for recheck. Rinse the inside of the mouth with half-strength peroxide twice daily. Do not swallow. Do not allow contact with the outside of the lip. - Post Discharge Activity
[2020-04-10] MEDS ORDERED: AMOXICILLIN 250 MG CAPSULE ONE (12:57)
== END 2020-04-10 13:00 | disposition home or self-care (01) ==
LOC: FER 12:27
DX: S01.511A Laceration without foreign body of lip, initial encounter (principal)
CPT/HCPCS: 99283-25

== ENCOUNTER 2020-09-22 23:15 | Emergency (ER) | payer OTHER ==
[2020-09-22 23:24] VITALS: TEMP 98.3; BMI 41.0
[2020-09-22] MEDS ORDERED: ALBUTEROL SO4 0.083% IH SOL 2.5 MG/3 ML VIAL.NEB. NEB ONE ×2 (23:36→23:38)
[2020-09-22] MEDS ORDERED: DEXAMETHASONE SOD PHOSPHATE 10 MG/1 ML VIAL IVPUSH ONE (23:36)
[2020-09-22] MEDS ORDERED: DEXAMETHASONE SOD PHOSPHATE 10 MG/1 ML VIAL ONE (23:50)
[2020-09-23 00:03] VITALS: BP 135/81; PULSE 84
== END 2020-09-23 01:20 | disposition home or self-care (01) ==
LOC: FER 23:15
PROC: 3E0F7GC Introduction of Other Therapeutic Substance into Respiratory Tract, Via Natural or Artificial Opening (ICD-10-PCS; principal; 2020-09-22)
PROC: 3E033GC Introduction of Other Therapeutic Substance into Peripheral Vein, Percutaneous Approach (ICD-10-PCS; 2020-09-22)
DX: R07.89 Other chest pain (principal)
CPT/HCPCS: 71045-TC-FY; 87070; 87880; 93005; 99285-25; C9803; J1100; U0003

== ENCOUNTER 2020-10-31 23:09 | Emergency (ER) | payer OTHER ==
[2020-10-31 23:20] VITALS: BP 153/91; PULSE 102; TEMP 98.2; BMI 37.0
== END 2020-10-31 23:52 | disposition home or self-care (01) ==
LOC: FER 23:09
DX: O87.0 Superficial thrombophlebitis in the puerperium (principal); S93.501A Unspecified sprain of right great toe, initial encounter
CPT/HCPCS: 73660-TC-FY; 99284-25

== ENCOUNTER 2021-05-17 23:17 | Emergency (ER) | payer OTHER ==
[2021-05-17 23:26] VITALS: BP 152/99; PULSE 105; TEMP 98.3; BMI 37.4
[2021-05-17 23:50] LABS: HCG,QUALITATIVE URINE Negative
[2021-05-18] MEDS ORDERED: ACETAMINOPHEN 1000 MG/100 ML VIAL IVPB ONE (00:19)
[2021-05-18] MEDS ORDERED: ACETAMINOPHEN INJECTION 100 ML IVPB ONE (00:32)
[2021-05-18 01:47] LABS: BASO % 0.2 % (0-2.0); EOS % 0.6 % (0-4.5); HEMATOCRIT 33.5 % (32.4-45.2); HEMOGLOBIN 10.5 GM/dL (10.7-15.3); LYMPH % 12.5 % (8-40); MCH 23.6 pg (25.7-33.7); MCHC 31.2 g/dl (32.0-36.0); MEAN CELL VOLUME 75.6 fl (80-96); MEAN PLT VOLUME 8.2 fl (7.5-11.1); NEUT % 75.7 % (42.8-82.8); PLATELET COUNT 254 10^3/uL (134-434); RBC 4.44 M/mm3 (3.60-5.2); RDW 16.7 % (11.6-15.6); WHITE BLOOD COUNT 8.3 K/mm3 (4.0-10.0)
[2021-05-18 02:09] LABS: ALBUMIN 3.3 g/dl (3.4-5.0); BLOOD UREA NITROGEN 14.8 mg/dL (7-18)
[2021-05-18 02:12] LABS: CREATININE 0.8 mg/dL (0.55-1.3)
[2021-05-18 02:14] LABS: BILIRUBIN,TOTAL 0.3 mg/dL (0.2-1); TOT PROT 6.7 g/dl (6.4-8.2)
== END 2021-05-18 02:59 | disposition home or self-care (01) ==
LOC: FER 23:17
PROC: 3E033GC Introduction of Other Therapeutic Substance into Peripheral Vein, Percutaneous Approach (ICD-10-PCS; principal; 2021-05-17)
DX: N83.202 Unspecified ovarian cyst, left side (principal); K76.0 Fatty (change of) liver, not elsewhere classified; I10 Essential (primary) hypertension
CPT/HCPCS: 36415; 74177-TC; 76700-TC; 80053; 81003; 83690; 84703; 85025; 99285-25; J0131; Q9967

== ENCOUNTER 2021-07-07 04:23 | Emergency (ER) | payer OTHER ==
[2021-07-07 04:32] VITALS: BP 154/89; PULSE 94; TEMP 97.6; BMI 31.8
== END 2021-07-07 05:50 | disposition home or self-care (01) ==
LOC: FER 04:23
PROC: 3E0F7GC Introduction of Other Therapeutic Substance into Respiratory Tract, Via Natural or Artificial Opening (ICD-10-PCS; principal; 2021-07-07)
DX: J45.901 Unspecified asthma with (acute) exacerbation (principal)
CPT/HCPCS: 99283-25

== ENCOUNTER 2024-11-29 14:44 | Emergency (ER) | payer SELFPAY ==
[2024-11-29] MEDS ORDERED: ALBUTEROL SO4 2.5/IPRATROPIUM 0.5 INH SOL 3 ML VIAL.NEB. NEB ONE (15:12)
[2024-11-29] MEDS: ALBUTEROL SO4 2.5/IPRATROPIUM 0.5 INH SOL 3 ML VIAL.NEB. NEB ONE (15:16)
[2024-11-29 15:20] VITALS: BP 157/103; PULSE 106; RESP 19; TEMP 98.6; BMI 37.0
[2024-11-29] MEDS ORDERED: PSEUDOEPHEDRINE HCL 30 MG TABLET PO ONE (16:15)
[2024-11-29] MEDS ORDERED: PSEUDOEPHEDRINE HCL 30 MG TABLET ONE (16:34)
== END 2024-11-29 16:42 | disposition home or self-care (01) ==
LOC: FER 14:44
PROC: 3E0F7GC Introduction of Other Therapeutic Substance into Respiratory Tract, Via Natural or Artificial Opening (ICD-10-PCS; principal; 2024-11-29)
DX: R51.9 Headache, unspecified (principal); J06.9 Acute upper respiratory infection, unspecified; R05.9 Cough, unspecified; R50.9 Fever, unspecified; R09.81 Nasal congestion; R09.3 Abnormal sputum
CPT/HCPCS: 0241U-QW; 71046-TC-FY; 99284-25